=== PATIENT | female | born 1980 | race Caucasian/White ===

== ENCOUNTER → 2016-04-12 | Outpatient (CLI) | payer OTHER ==
--- NOTE | 2016-04-12 19:16 | US ---
EXAMINATION TYPE: US OB <= 14 wk fetus DATE OF EXAM: 04/12/2016 6:35 PM COMPARISON: NONE CLINICAL HISTORY: Z33.1. EXAM PERFORMED: EXAM MEASUREMENTS: GESTATIONAL AGE / DATING Physician Established: not yet established Dates by LMP: (9 weeks/4 days) EDC: 11/11/16 Dates by First Scan: 1st scan today Dates by Current Scan for: ( 8 weeks/3 days) EDC: 11/19/16 MATERNAL ANATOMY Uterus: 9.7 x 6.6 x 8.3cm retroverted Right Ovary: 3.7 x 2.5 x 2.5cm Left Ovary: 3.5 x 2.5 x 2.3cm Post CDS / Adnexa: wnl Presence of free fluid: no GESTATION / SURVEY CRL: 1.9cm (8 weeks/3 days) Yolk Sac (normal less than 6mm): 0.2 Heart Rate: 178 bpm Rhythm: Normal IUP: Viable IUP Date of LMP: 02/05/16 TECHNOLOGIST IMPRESSION: Viable IUP IMPRESSION: The ultrasound gestational age is 8 weeks 3 days. I see no complicating process.
== END | disposition home or self-care (01) ==
LOC: RADUSMAIN 17:49
PROVIDERS: ATTEND Family Medicine
DX: Z36 Encounter for antenatal screening of mother (principal); Z3A.08 8 weeks gestation of pregnancy
CPT/HCPCS: 76801

== ENCOUNTER → 2016-06-01 | Outpatient (CLI) | payer OTHER ==
[2016-06-01 13:04] LABS: CH 30.6; CHCM 34.6; Glucose 98 mg/dL (74-99); HCT 37.7 % (34.0-46.0); HDW 2.61; HGB 12.8 gm/dL (11.4-16.0); MCH 30.3 pg (25.0-35.0); Mean Platelet Volume 7.9; Non-African American GFR(MDRD) >60 (>60 ml/min/1.73 sqM); RBC 4.23 m/uL (3.80-5.40); RDW 13.4 % (11.5-15.5); WBC 9.2 k/uL (3.8-10.6)
[2016-06-01 13:36] LABS: Hepatitis B Surface Ag Index 0.07
[2016-06-02 05:31] LABS: Toxoplasma Antibody (IgG) <3.0 IU/mL (<7.2)
[2016-06-02 07:39] LABS: HIV-1/HIV-2 Ab Screen NONREAC (NON REAC)
[2016-06-02 12:17] LABS: Alpha Fetoprotein 28.3 ng/mL; Alpha Fetoprotein (M.O.M) 0.87; B-HCG (M.O.M.) 0.57; Gestational Age (days) 4; Human Chorionic Gonadotropin 25.1 IU/mL; Inhibin A (M.O.M.) 1.81; Interpretation SeeBelow; Maternal Age at EDD (Yrs) 38; Unconjugated Estriol (M.O.M.) 0.69
== END | disposition home or self-care (01) ==
LOC: LABWHC1 12:05
PROVIDERS: ATTEND Obstetrics & Gynecology
DX: Z34.82 Encounter for supervision of other normal pregnancy, second trimester (principal); Z3A.00 Weeks of gestation of pregnancy not specified
CPT/HCPCS: 36415; 81220; 82105; 82565; 82677; 82947; 84702; 85027; 86336; 86762; 86777; 86778; 86780; 86850; 86900; 86901; 87340; 87389

== ENCOUNTER → 2016-06-16 | Outpatient (CLI) | payer OTHER ==
--- NOTE | 2016-06-16 17:24 | US ---
EXAMINATION TYPE: US OB anatomy transabd DATE OF EXAM: 06/16/2016 5:04 PM COMPARISON: In pacs HISTORY: Large for Dates O36.62X0 LGA TECHNIQUE: Transabdominal (TA) EXAM MEASUREMENTS: GESTATIONAL AGE / DATING Physician Established: (18 weeks/6 days) EDC: 11/11/2016 Dates by LMP: (18 weeks/6 days) EDC: 11/11/2016 Dates by First Scan: (17 weeks/5 days) EDC: 11/19/2016 Dates by Current Scan for: (18 weeks/0 days) EDC: 11/17/2016 SURVEY IUP: Single PLACENTA: Anterior PREVIA: No previa JULITO: 12.5 cm Normal CERVICAL LENGTH (transabdominal: norm > 3.0cm): 3.4 cm BIOMETRY PRESENTATION: Vertex LIE: Longitudinal BPD: 4.0 cm 18 weeks / 0 days HC: 14.7 cm 17 weeks / 6 days AC: 12.6 cm 18 weeks / 1 days FL: 2.7 cm 18 weeks / 1 days ESTIMATED WEIGHT IN GRAMS: 225.0 grams ESTIMATED WEIGHT IN LBS/OZS: 0 lbs. 8 oz. WEIGHT PERCENTAGE BASED ON ESTABLISHED DATE: 11.7 % HC/AC: 1.17 Normal FL/AC: 21.31 HEART RATE: 149 bpm RHYTHM: Normal ANATOMY SEEN (within normal limits): * Lateral Vent (< 1 cm) 0.7 cm * Cisterna Magna (< 1.1 cm) 0.4 cm * Nuchal Fold (< 0.6 cm) 0.2 cm * Cerebellum (varies with age) 1.6 cm Choroid Plexus (bilateral) Midline Falx Cavus Septi Pellucidi Four Chamber Heart Outflow tracts: LVOT/RVOT Stomach Situs Nose / Lips Diaphragm Kidneys (bilateral) Bladder Cord Insert Three Vessel Cord Arms (bilateral) Legs (bilateral) ANATOMY NOT SEEN: Due to position, spine down Longitudinal Spine Transverse Spine Viable single IUP measuring 18 weeks 0 days with a heart rate of 149bpm and an estimated delivery anna e of 11/17/2016. Patient is scheduled for an OB callback on 07/02/16 at 4:20pm for anatomy not seen on today's exam. IMPRESSION: Viable single IUP measuring 18 weeks 0 days with a heart rate of 149bpm and an estimated delivery anna e of 11/17/2016. Patient callback recommended.
--- NOTE | 2016-07-03 20:17 | US ---
EXAMINATION TYPE: US OB Call Back DATE OF EXAM: 07/02/2016 4:42 PM COMPARISON: survey 06/16/2016 CLINICAL HISTORY: 35-year-old female OB Call BACK. TECHNIQUE: Transabdominal scanning. FINDINGS: GESTATIONAL AGE / DATING Dates by Initial Survey Scan: (21 weeks/1 days) EDC: 11/11/2016 HEART RATE: 152 bpm RHYTHM: Normal ANATOMY SEEN (second anatomic survey look): Longitudinal Spine: Thoracic, lumbar, sacral Transverse Spine: Thoracic, lumbar, sacral ANATOMY SUBOPTIMALLY VISUALIZED: Longitudinal and transverse spine: Cervical spine. Unable to exclude abnormality especially on the lo ng axis views of the cervical spine on the first couple images. IMPRESSION: Suboptimal visualization of the cervical spine. Rescan of this area is recommended. The remainder of the spine appears normal.
== END | disposition home or self-care (01) ==
LOC: RADUSWWP 16:29
PROVIDERS: ATTEND Obstetrics & Gynecology
DX: O36.62X0 Maternal care for excessive fetal growth, second trimester, not applicable or unspecified (principal); Z3A.18 18 weeks gestation of pregnancy
CPT/HCPCS: 76811

== ENCOUNTER 2016-07-24 08:46 | Emergency (ER) | payer OTHER ==
[2016-07-24 08:52] VITALS: BP 118/63; PULSE 88; RESP 18; TEMP 98.5
--- NOTE | 2016-07-24 09:04 | ED ---
Lower Extremity Injury HPI - General Chief Complaint: Extremity Injury, Lower Stated Complaint: Fall Time Seen by Provider: 07/24/16 08:55 Source: patient, RN notes reviewed Mode of arrival: wheelchair Limitations: no limitations - History of Present Illness Initial Comments: 35-year-old female presents emergency room chief complaint of right ankle injury. Patient states she was walking on the stairs and she missed a step and twisted her right ankle. Patient states now has pain along the lateral aspect. Patient states that she was able to walk on this. Patient states she is currently 22 weeks . Patient states she was concerned when she noticed swelling so she thought that she should be evaluated. Patient denies any other incident from the event. Patient states that she did not fall to the ground she just rolled her ankle.Patient denies any recent fever, chills, shortness of breath, chest pain, back pain, abdominal pain, nausea vomiting, numbness or tingling, dysuria or hematuria, constipation or diarrhea, headaches or visual changes, or any other current symptoms. - Related Data Allergies Allergy/AdvReac Type Severity Reaction Status Date / Time No Known Allergies Allergy Verified 07/24/16 08:52 Review of Systems ROS Statement: Those systems with pertinent positive or pertinent negative responses have been documented in the HPI. ROS Other: All systems not noted in ROS Statement are negative. Past Medical History Additional Past Medical History / Comment(s): IBS History of Any Multi-Drug Resistant Organisms: None Reported Past Surgical History: Section Past Psychological History: Anxiety Smoking Status: Current every day smoker Past Alcohol Use History: None Reported Past Drug Use History: None Reported General Exam - General Exam Comments Initial Comments: General: The patient is awake and alert, in no distress, and does not appear acutely ill. Neck: The neck is supple, there is no tenderness. Cardiovascular: There is a regular rate and rhythm. No murmur, rub or gallop is appreciated. Respiratory: Lungs are clear to auscultation, respirations are non-labored, breath sounds are equal. No wheezes, stridor, rales, or rhonchi. Musculoskeletal: Sensation intact with 2+ pulses. She'll return for range of motion of right knee right ankle. Patient does have some tenderness along the lateral aspect of the right ankle with some swelling over the lateral malleolus. No medial tenderness. There is full range of motion. 5/5 muscle strength testing. Neurological: CN II-XII intact, There are no obvious motor or sensory deficits. Coordination appears grossly intact. Speech is normal. Skin: Skin is warm and dry and no rashes or lesions are noted. Psychiatric: Normal mood and affect. Limitations: no limitations Course Vital Signs 07/24/16 08:46 Temperature 98.5 F Pulse Rate 88 Respiratory 18 Rate Blood Pressure 118/63 O2 Sat by Pulse 99 Oximetry Procedures - Orthopedic Splinting/Casting Injury #1 Side: right Lower Extremity Injury Location: ankle Lower Extremity Immobilizer: Gabriel wrap Medical Decision Making - Medical Decision Making 35-year-old female presents with what appears to be a right ankle sprain. This time we discussed ice and Tylenol to the area. We did discuss doing an x-ray. Patient was able pain and she is currently . With the rest the patient states that she would not like to undergo an x-ray at this time. We did discuss that she can return in a few days if her symptoms continue and at that point we can rediscuss the x-ray. The patient is in agreement with the plan and all her questions have been answered. She will be discharged home. Disposition Clinical Impression: Right ankle sprain Disposition: HOME SELF-CARE Condition: Stable Instructions: Ankle Sprain (ED) Additional Instructions: Please use medication as discussed. Please follow up with family doctor if symptoms have not improved over the next two days. Please return to the emergency room if your symptoms increase or worsen or for any other concerns. Referrals: Tanesha Agarwal MD [STAFF PHYSICIAN] - 1-2 days Time of Disposition: 09:03
== END 2016-07-24 09:29 | disposition home or self-care (01) ==
LOC: EC 08:46
DX: O9A.212 Injury, poisoning and certain other consequences of external causes complicating pregnancy, second trimester (principal); S93.401A Sprain of unspecified ligament of right ankle, initial encounter; O99.332 Smoking (tobacco) complicating pregnancy, second trimester; F17.200 Nicotine dependence, unspecified, uncomplicated; Z3A.22 22 weeks gestation of pregnancy; W10.9XXA Fall (on) (from) unspecified stairs and steps, initial encounter; Y93.01 Activity, walking, marching and hiking
CPT/HCPCS: 99283

== ENCOUNTER → 2016-09-04 | Outpatient (CLI) | payer OTHER ==
[2016-09-04 11:02] LABS: CH 29.4; CHCM 33.7; HDW 2.77; HGB 12.1 gm/dL (11.4-16.0); MCHC 36.5 g/dL (31.0-37.0); MCV 87.8 fL (80.0-100.0); Mean Platelet Volume 7.9; RBC 3.76 m/uL (3.80-5.40); RDW 13.3 % (11.5-15.5); WBC 9.4 k/uL (3.8-10.6)
== END | disposition home or self-care (01) ==
LOC: LABWHC1 09:13
PROVIDERS: ATTEND Obstetrics & Gynecology
DX: Z34.82 Encounter for supervision of other normal pregnancy, second trimester (principal)
CPT/HCPCS: 36415; 82950; 85027; 86850

== ENCOUNTER → 2016-09-13 | Outpatient (CLI) | payer OTHER ==
[2016-09-13 12:53] LABS: Glucose 3 Hour, Gest 141 mg/dL
== END | disposition home or self-care (01) ==
LOC: LABWHC1 08:03
PROVIDERS: ATTEND Obstetrics & Gynecology
DX: O24.419 Gestational diabetes mellitus in pregnancy, unspecified control (principal); Z3A.00 Weeks of gestation of pregnancy not specified
CPT/HCPCS: 36415; 82951; 82952

== ENCOUNTER → 2016-09-29 | Outpatient (CLI) | payer OTHER ==
[2016-09-29 10:54] VITALS: BMI 27.4
== END | disposition home or self-care (01) ==
LOC: DBWHC3 08:00
PROVIDERS: ATTEND Obstetrics & Gynecology
DX: O99.810 Abnormal glucose complicating pregnancy (principal); Z3A.00 Weeks of gestation of pregnancy not specified

== ENCOUNTER 2016-11-04 06:14 | Inpatient (IN) | payer OTHER ==
[2016-11-04] MEDS ORDERED: LACTATED RINGERS 1,000 ML IV ONE (06:18)
[2016-11-04] MEDS ORDERED: CITRIC ACID-SODIUM CITRATE 15 ML CUP PO ONE (06:18)
[2016-11-04] MEDS ORDERED: ceFAZolin 2 GM in SODIUM CHLORIDE 0.9% 100 ML IVPB ONE (06:18)
[2016-11-04 06:29] VITALS: BMI 27.6
[2016-11-04 06:40] LABS: Basophils # (A) 0.1 k/uL (0-0.2); Basophils % (A) 0 %; CHCM 35.4; Eosinophils # (A) 0.3 k/uL (0-0.7); Eosinophils % (A) 2 %; HCT 35.8 % (34.0-46.0); HDW 2.82; HGB 12.4 gm/dL (11.4-16.0); Luc # (Auto) 0.16; Luc % (Auto) 1; Lymphocytes # (A) 1.8 k/uL (1.0-4.8); Lymphocytes % (A) 15 %; MCH 30.5 pg (25.0-35.0); MCHC 34.5 g/dL (31.0-37.0); MCV 88.3 fL (80.0-100.0); Mean Platelet Volume 8.9; Monocytes # (A) 0.6 k/uL (0-1.0); Monocytes % (A) 5 %; Neutrophils # (A) 9.3 k/uL (1.3-7.7); Neutrophils % (A) 77 %; RBC 4.06 m/uL (3.80-5.40); RDW 14.4 % (11.5-15.5); WBC 12.1 k/uL (3.8-10.6); WBC (Perox) 12.39
[2016-11-04] MEDS ORDERED: OXYTOCIN 10 UNIT/ML 1 ML VIAL ONE (07:55)
[2016-11-04] MEDS ORDERED: MORPHINE SULFATE (PF) 0.3 MG/0.3 ML SYR ONE (07:55)
[2016-11-04] MEDS ORDERED: ePHEDrine SULFATE/0.9% NACL/PF 50 MG/5 ML SYRINGE IV ONE (07:55)
[2016-11-04] MEDS ORDERED: ONDANSETRON 4 MG/2 ML VIAL ONE (07:55)
[2016-11-04] MEDS ORDERED: DEXAMETHASONE SOD PHOS (MDV) 100 MG/10 ML VIAL ONE (07:55)
[2016-11-04] MEDS ORDERED: KETOROLAC 30 MG/ML 1 ML VIAL ONE (07:55)
[2016-11-04] MEDS ORDERED: NALBUPHINE 10 MG/ML AMPUL ONE (07:55)
[2016-11-04] MEDS ORDERED: NALOXONE 0.4 MG/ML 1 ML VIAL IV PRN (08:38)
[2016-11-04] MEDS ORDERED: ACETAMINOPHEN TAB 325 MG TAB PO PRN (08:38)
[2016-11-04] MEDS ORDERED: Acetaminophen-Codeine 300-30mg TAB PO PRN (08:38)
[2016-11-04] MEDS ORDERED: METOCLOPRAMIDE 5 MG/ML 2 ML VIAL IVP PRN (08:38)
[2016-11-04] MEDS ORDERED: diphenhydrAMINE 50 MG CAP PO PRN (08:38)
[2016-11-04] MEDS ORDERED: ZOLPIDEM 5 MG TAB PO PRN (08:38)
[2016-11-04] MEDS ORDERED: SIMETHICONE 80 MG CHEWABLE PO PRN (08:38)
[2016-11-04] MEDS ORDERED: diphenhydrAMINE 25 MG CAP PO PRN (08:38)
[2016-11-04] MEDS ORDERED: diphenhydrAMINE 50 MG/ML 1 ML VIAL IVP PRN (08:38)
[2016-11-04] MEDS ORDERED: ONDANSETRON 4 MG/2 ML VIAL IVP PRN (08:38)
--- NOTE | 2016-11-04 08:42 | P.HPOB ---
History of Present Illness H&P Date: 11/04/16 Chief Complaint: Uterine at term: Previous section: Breech of last ultras Sana is a 36-year-old at 39 weeks gestation with history of previous section and last ultrasound showed a breech presentation. Her course has been complicated has maternal age and previous breech she is had nonstress tests throughout the due to advanced maternal age and it is noted that she failed her 1 hour but passed a 3 hour with only one abnormal and she did see diabetic education for this. Otherwise Precis course has generally been unremarkable. On physical exam vital signs are stable and she is afebrile. Heart regular, lungs clear, extremities without pain. Osteopathic exam is unremarkable. heart tones in 130s and reactive prior to the section. Assessment intrauterine at term. Land repeat low transverse section with partial bilateral salpingectomy for family planning. Past Medical History Past Medical History: No Reported History Additional Past Medical History / Comment(s): IBS History of Any Multi-Drug Resistant Organisms: None Reported Past Surgical History: Section Past Anesthesia/Blood Transfusion Reactions: No Reported Reaction Past Psychological History: Anxiety Smoking Status: Current every day smoker Past Alcohol Use History: None Reported Additional Past Alcohol Use History / Comment(s): SMOKES 1/2 PPD SINCE AGE 13 Past Drug Use History: None Reported - Past Family History Mother Family Medical History: Hypertension Medications and Allergies Home Medications Medication Instructions Recorded Confirmed Type Doxylamine Succinate [Unisom] 25 mg PO HS 11/01/16 11/04/16 History Pnv,Calcium 72/Iron/Folic Acid 1 tab PO DAILY 11/01/16 11/04/16 History [ Plus Tablet] Allergies Allergy/AdvReac Type Severity Reaction Status Date / Time hydrocodone [From Vicodin] AdvReac Nausea Verified 11/04/16 06:18 Exam Osteopathic Statement: *. No significant issues noted on an osteopathic structural exam other than those noted in the History and Physical/Consult. - Vital Signs Vital signs: Vital Signs Temp Pulse Resp BP Pulse Ox 11/04/16 06:17 97.1 F L 78 19 117/64 97 Intake and Output 11/03/16 11/04/16 11/04/16 22:59 06:59 14:59 Other: Weight 73.028 kg Results Result Diagrams: 11/04/16 06:25 Abnormal Lab Results - Last 24 Hours (Table) 11/04/16 Range/Units 06:25 WBC 12.1 H (3.8-10.6) k/uL Neutrophils # 9.3 H (1.3-7.7) k/uL
--- NOTE | 2016-11-04 08:46 | P.OP ---
Date of Procedure: 11/04/16 Preoperative Diagnosis: Intrauterine at term: Previous section: Breech: Family planning Postoperative Diagnosis: Same Procedure(s) Performed: Repeat low transverse section with bilateral partial salpingectomy Implants: Anesthesia: spinal Surgeon: Cristóbal Angel Locomotive Observer #1: Quynh Uriostegui Estimated Blood Loss (ml): 500 IV fluids (ml): 1,000 Urine output (ml): 200 Pathology: other (Placenta) Condition: stable Disposition: floor Indications for Procedure: Operative Findings: Breech delivery via of a viable female scores of 9 and 10 at one and 5 minutes respectively weight was 5 lbs. 13 oz. Description of Procedure: Patient was taken to the operating suite where a spinal anesthetic was found be adequate. She was prepped and draped in the normal sterile fashion and placed in dorsal supine position with leftward tilt. Initially a Pfannenstiel skin incision was made this incision was then carried through to underlying layer of the fascia was second knife. Fascia was then nicked in the midline and this opening was extended laterally with Ramirez scissors. Superior and inferior aspect of this incision were then grasped tented up and bluntly and sharply dissected off the rectus muscles. Rectus muscles were then divided the midline and sharp dissection through the peritoneum was made. This opening was then extended superiorly and inferiorly with good visualization of both bowel bladder. Bladder blade was then placed and the bladder flap was identified. It was entered with Metzenbaum scissors this opening was extended across face the uterus and then bluntly dissected out of the operative field. Knife was then used to incise uterus: Incision was created with hemostat and then the incision was bluntly extended. But it was noted and it was elevated into the incision and without difficulty entire baby delivered. Mouth nares were then bulb suctioned and the umbilical cord was clamped and cut in usual fashion. Placenta was then delivered intact and Pitocin was added to the IV. Uterus was then exteriorized cleared of clots and debris and closed in 1 layer with 0 Vicryl suture. Once excellent hemostasis was obtained the fallopian tubes were identified grasped with hemostat 3 cm from uterine cornu and a window was created in the mesosalpinx bilaterally. 2 proximal and 2 distal 2-0 silk sutures were then placed with the intervening segments excised and tips were cauterized. Blood and debris was then suctioned from the posterior cul-de-sac and the uterus was reinserted into the abdomen. Peritoneal layer was then identified and closed with 3-0 Vicryl. Fascially was closed Lobac suture. One layer of 3-0 Vicryl was placed in deep subcuticular tissues and skin was then closed with 3-0 Vicryl on a Teodoro needle. Sponge, lap, needle counts were all correct 2. Patient was then taken to the recovery room in stable and satisfactory condition.
[2016-11-04] MEDS: LACTATED RINGERS 1,000 ML IV SCH ×3 (12:01→20:36)
[2016-11-04] MEDS: KETOROLAC 30 MG/ML 1 ML VIAL IVP PRN ×2 (14:51→21:29)
[2016-11-04] MEDS: diphenhydrAMINE 50 MG/ML 1 ML VIAL IVP PRN (17:41)
[2016-11-04] MEDS: SENNOSIDES-DOCUSATE SODIUM 1 EACH TAB PO SCH (20:36)
[2016-11-05] MEDS: diphenhydrAMINE 50 MG/ML 1 ML VIAL IVP PRN (00:02)
[2016-11-05] MEDS: LACTATED RINGERS 1,000 ML IV SCH ×2 (01:16→03:07)
[2016-11-05 01:18] VITALS: RESP 16
[2016-11-05] MEDS: KETOROLAC 30 MG/ML 1 ML VIAL IVP SCH ×2 (04:38→11:15)
[2016-11-05 07:21] LABS: Basophils % (A) 0 %; CH 31.1; CHCM 34.8; Eosinophils # (A) 0.1 k/uL (0-0.7); Eosinophils % (A) 1 %; HDW 2.75; HGB 10.8 gm/dL (11.4-16.0); Luc # (Auto) 0.15; Luc % (Auto) 1; Lymphocytes # (A) 2.2 k/uL (1.0-4.8); Lymphocytes % (A) 18 %; MCH 30.4 pg (25.0-35.0); MCHC 33.7 g/dL (31.0-37.0); MCV 90.1 fL (80.0-100.0); Mean Platelet Volume 9.4; Monocytes # (A) 0.5 k/uL (0-1.0); Monocytes % (A) 4 %; Neutrophils # (A) 9.8 k/uL (1.3-7.7); Neutrophils % (A) 76 %; RBC 3.55 m/uL (3.80-5.40); RDW 14.4 % (11.5-15.5); WBC 12.8 k/uL (3.8-10.6); WBC (Perox) 12.87
[2016-11-05] MEDS: SENNOSIDES-DOCUSATE SODIUM 1 EACH TAB PO SCH ×2 (07:37→19:53)
--- NOTE | 2016-11-05 09:03 | P.PN ---
Progress Note - Text Date:11/05 Time:736 Patient is status post . Patient seen this morning with VAS score of 0. c/o of pruritus, c/o nausea/vomiting, comfortable and doing well.
--- NOTE | 2016-11-05 09:09 | P.PNOBGPC ---
Subjective - Subjective Principal diagnosis: Postop day 1 Interval history: Sana is doing very well this morning. She is involuting, voiding and she is tolerating her diet. She voices no complaints. She did have some dizziness yesterday but it has resolved. Vital signs are stable and afebrile. Heart regular, lungs clear, extremities without pain. Abdomen is soft uterus is firm and her incision is intact. Assessment postop day 1. Plan continue current care with expectation for discharge tomorrow. Patient reports: Reports appetite normal, Reports voiding normally, Reports pain well controlled, Reports ambulating normally [place]: doing well Objective - Vital Signs Latest vital signs: Vital Signs Temp Pulse Resp BP Pulse Ox 11/05/16 07:56 98.0 F 72 16 103/61 11/05/16 04:00 98.4 F 70 16 97/50 97 11/05/16 00:00 98.2 F 71 16 95/58 96 11/04/16 20:00 98.2 F 68 17 105/64 97 11/04/16 15:56 97.2 F L 69 16 109/62 11/04/16 12:00 98.2 F 72 16 108/62 11/04/16 11:00 98.1 F 79 16 102/60 11/04/16 10:25 72 16 116/57 95 11/04/16 09:45 75 16 109/66 11/04/16 09:30 71 16 107/55 99 11/04/16 09:15 76 16 118/57 98 Intake and Output 11/04/16 11/05/16 11/05/16 22:59 06:59 14:59 Output Total 900 200 Balance -900 -200 Output: Urine 700 200 Uretheral (Shirley) 250 Emesis 200 Other: # Voids 0 1 1 - Labs Labs: Abnormal Lab Results - Last 24 Hours (Table) 11/05/16 Range/Units 07:06 WBC 12.8 H (3.8-10.6) k/uL RBC 3.55 L (3.80-5.40) m/uL Hgb 10.8 L (11.4-16.0) gm/dL Hct 32.0 L (34.0-46.0) % Neutrophils # 9.8 H (1.3-7.7) k/uL
[2016-11-05] MEDS: IBUPROFEN 600 MG TAB PO PRN ×2 (16:26→22:21)
[2016-11-05] MEDS: Acetaminophen-Codeine 300-30mg TAB PO PRN (18:20)
[2016-11-06] MEDS: Acetaminophen-Codeine 300-30mg TAB PO PRN (00:28)
[2016-11-06] MEDS: IBUPROFEN 600 MG TAB PO PRN ×2 (05:22→11:42)
[2016-11-06] MEDS: SENNOSIDES-DOCUSATE SODIUM 1 EACH TAB PO SCH (08:32)
--- NOTE | 2016-11-06 09:22 | P.DS ---
Providers Date of admission: 11/04/16 06:14 Expected date of discharge: 11/06/16 Attending physician: Cristóbal Angel Primary care physician: Stated None - Discharge Diagnosis(es) (1) Status post repeat low transverse section Current Visit: Yes Status: Acute Hospital Course: Patient presented for repeat low transverse . She underwent this procedure without complication. She denies nausea, vomiting, chest pain, shortness of breath or calf pain. She is ambulating voiding without difficulty. Tolerating regular diet and passing flatus. She'll be discharged home postoperative day #2 in stable condition to follow-up with me in one week. Plan - Discharge Summary New Discharge Prescriptions: New Ibuprofen [Motrin] 600 mg PO Q6HR PRN #30 tab PRN Reason: Pain Acetaminophen-Codeine 300-30mg [Tylenol #3] 2 tab PO Q6H PRN #30 tablet PRN Reason: Pain Ibuprofen [Motrin] 600 mg PO Q6HR PRN #30 tab PRN Reason: Mild Pain Or Fever >= 100.5 No Action Pnv,Calcium 72/Iron/Folic Acid [ Plus Tablet] 1 tab PO DAILY Doxylamine Succinate [Unisom] 25 mg PO HS Discharge Medication List Doxylamine Succinate [Unisom] 25 mg PO HS 11/01/16 [History] Pnv,Calcium 72/Iron/Folic Acid [ Plus Tablet] 1 tab PO DAILY 11/01/16 [ History] Ibuprofen [Motrin] 600 mg PO Q6HR PRN #30 tab 11/05/16 [Rx] Acetaminophen-Codeine 300-30mg [Tylenol #3] 2 tab PO Q6H PRN #30 tablet [Rx] Ibuprofen [Motrin] 600 mg PO Q6HR PRN #30 tab 11/06/16 [Rx] Follow up Appointment(s)/Referral(s): Cristóbal Angel DO [Doctor of Osteopathic Medicine] - 1 Week Activity/Diet/Wound Care/Special Instructions: No heavy lifting, limit stairs and driving, and pelvic rest. If any high temperatures, heavy bleeding, or severe pain call my office Discharge Disposition: HOME SELF-CARE
[2016-11-06 09:34] VITALS: BP 115/53; PULSE 75; TEMP 97.6
== END 2016-11-06 16:29 | disposition home or self-care (01) | DRG 766 ==
LOC: 4FBP 06:14
PROVIDERS: ADMIT Obstetrics & Gynecology; ATTEND Obstetrics & Gynecology
PROC: 0UB70ZZ Excision of Bilateral Fallopian Tubes, Open Approach (ICD-10-PCS; 2016-11-04)
PROC: 10D00Z1 Extraction of Products of Conception, Low, Open Approach (ICD-10-PCS; principal; 2016-11-04 08:00)
DX: O34.211 Maternal care for low transverse scar from previous cesarean delivery (principal); F41.9 Anxiety disorder, unspecified; Z37.0 Single live birth; O99.344 Other mental disorders complicating childbirth; O99.334 Smoking (tobacco) complicating childbirth; O99.62 Diseases of the digestive system complicating childbirth; K58.9 Irritable bowel syndrome, unspecified; O99.89 Other specified diseases and conditions complicating pregnancy, childbirth and the puerperium; R42 Dizziness and giddiness; L29.9 Pruritus, unspecified; O99.72 Diseases of the skin and subcutaneous tissue complicating childbirth; R11.2 Nausea with vomiting, unspecified; Z3A.39 39 weeks gestation of pregnancy; Z82.49 Family history of ischemic heart disease and other diseases of the circulatory system
CPT/HCPCS: 85025; 86850; 86900; 86901; 88302; 88307

== ENCOUNTER 2017-06-19 01:48 | Observation (INO) | payer OTHER ==
[2017-06-19 01:55] VITALS: RESP 18
[2017-06-19] MEDS ORDERED: DICYCLOMINE 10 MG/ML 2 ML AMP IM STA (02:17)
[2017-06-19] MEDS ORDERED: SODIUM CHLORIDE 0.9% 1,000 ML IV STA (02:17)
[2017-06-19] MEDS ORDERED: ONDANSETRON 4 MG/2 ML VIAL IVP STA (02:17)
[2017-06-19] MEDS ORDERED: RX INFO: IV CONTRAST WAS GIVEN 1 EACH MISC MISCELLANE PRN (02:18)
--- NOTE | 2017-06-19 02:21 | ED ---
Abdominal Pain HPI - General Chief Complaint: Abdominal Pain Stated Complaint: Abdominal Pain Time Seen by Provider: 06/19/17 01:49 Source: EMS Mode of arrival: EMS Limitations: no limitations - History of Present Illness Initial Comments: 36-year-old female patient presents to the emergency department states chief complaint of abdominal pain. Patient states that the pain encompasses her entire lower abdomen. Patient states it started approximately 20 minutes prior to arrival just after having sexual intercourse. Patient states that she has been nauseated and did vomit one time. Patient does have a history of irritable bowel syndrome and has been taking Bentyl this week due to an increase in her symptoms. Patient denies any fever or chills. Denies any hematuria, dysuria, urinary frequency, urinary urgency. She denies any vaginal discomfort, abnormal bleeding or discharge. She denies any radiation of the pain into her back. Patient denies any recent rash, shortness breath, chest pain, diarrhea, constipation, back pain, numbness, tingling, dizziness, weakness , headache, visual changes, or any other complaints. Patient does admit to drinking alcohol today, states that she drinks approximately 2 times per month. She states that she had 3 shots of liquor and 2 beers. - Related Data Home Medications Medication Instructions Recorded Confirmed Doxylamine Succinate [Unisom] 25 mg PO HS 11/01/16 11/04/16 Pnv,Calcium 72/Iron/Folic Acid 1 tab PO DAILY 11/01/16 11/04/16 [ Plus Tablet] Previous Rx's Medication Instructions Recorded Ibuprofen [Motrin] 600 mg PO Q6HR PRN #30 tab 11/05/16 Acetaminophen-Codeine 300-30mg 2 tab PO Q6H PRN #30 tablet 11/06/16 [Tylenol #3] Ibuprofen [Motrin] 600 mg PO Q6HR PRN #30 tab 11/06/16 Allergies Allergy/AdvReac Type Severity Reaction Status Date / Time hydrocodone [From Vicodin] AdvReac Nausea Verified 06/19/17 01:55 Review of Systems ROS Statement: Those systems with pertinent positive or pertinent negative responses have been documented in the HPI. ROS Other: All systems not noted in ROS Statement are negative. Past Medical History Past Medical History: No Reported History Additional Past Medical History / Comment(s): IBS History of Any Multi-Drug Resistant Organisms: None Reported Past Surgical History: Section Past Anesthesia/Blood Transfusion Reactions: No Reported Reaction Past Psychological History: Anxiety Smoking Status: Current every day smoker Past Alcohol Use History: Occasional Past Drug Use History: None Reported - Past Family History Mother Family Medical History: Hypertension General Exam Limitations: no limitations General appearance: alert, in no apparent distress, other (This is a well- developed, well-nourished adult female patient in no acute distress. Vital signs upon presentation are temperature 97.5F, pulse 63, respirations 18, blood pressure 111/58, pulse ox 95% on room air.) Eye exam: Present: normal appearance, PERRL, EOMI. Absent: scleral icterus, conjunctival injection, periorbital swelling ENT exam: Present: normal exam, normal oropharynx, mucous membranes moist Respiratory exam: Present: normal lung sounds bilaterally. Absent: respiratory distress, wheezes, rales, rhonchi, stridor Cardiovascular Exam: Present: regular rate, normal rhythm, normal heart sounds. Absent: systolic murmur, diastolic murmur, rubs, gallop, clicks GI/Abdominal exam: Present: soft, tenderness (Lower abdominal tenderness, worse over the right lower quadrant.), normal bowel sounds. Absent: distended, guarding, rebound, rigid External exam: Present: normal external exam Speculum exam: Present: vaginal discharge (Thin, white), other (painful examination). Absent: normal speculum exam, vaginal bleeding By manual exam: Present: cervical motion tenderness, adnexal tenderness, uterine tenderness Back exam: Present: normal inspection. Absent: CVA tenderness (R), CVA tenderness (L) Neurological exam: Present: alert, oriented X3, CN II-XII intact Psychiatric exam: Present: normal affect, normal mood Skin exam: Present: warm, dry, intact, normal color. Absent: rash Course Vital Signs 06/19/17 06/19/17 01:51 03:29 Temperature 97.5 F L 99.3 F Pulse Rate 63 78 Respiratory 18 18 Rate Blood Pressure 111/58 112/66 O2 Sat by Pulse 95 98 Oximetry Medical Decision Making - Medical Decision Making 36-year-old female patient presented to the emergency department today for evaluation of pelvic pain after sexual intercourse. Physical examination did reveal significant lower abdominal tenderness. We did perform labs which showed an elevated white blood cell count 10.6. Perform CT the abdomen and pelvis with contrast which did show a density posterior to the uterus with evidence of bleeding. This mass is of uncertain significance. Did discuss the case with Dr. Saavedra who agrees to admit patient for observation perform ultrasound and repeat CBC in the morning. I did discuss results and plan with the patient she is in agreement. - Lab Data Result diagrams: 06/19/17 02:30 06/19/17 02:30 Lab Results 06/19/17 06/19/17 06/19/17 Range/Units 02:30 02:30 02:46 WBC 10.8 H (3.8-10.6) k/uL RBC 4.97 (3.80-5.40) m/uL Hgb 14.4 (11.4-16.0) gm/dL Hct 42.2 (34.0-46.0) % MCV 85.0 (80.0-100.0) fL MCH 29.1 (25.0-35.0) pg MCHC 34.2 (31.0-37.0) g/dL RDW 13.6 (11.5-15.5) % Plt Count 238 (150-450) k/uL Neutrophils % 73 % Lymphocytes % 20 % Monocytes % 3 % Eosinophils % 2 % Basophils % 0 % Neutrophils # 7.9 H (1.3-7.7) k/uL Lymphocytes # 2.1 (1.0-4.8) k/uL Monocytes # 0.4 (0-1.0) k/uL Eosinophils # 0.2 (0-0.7) k/uL Basophils # 0.0 (0-0.2) k/uL Sodium 143 (137-145) mmol/L Potassium 3.8 (3.5-5.1) mmol/L Chloride 107 (98-107) mmol/L Carbon Dioxide 23 (22-30) mmol/L Anion Gap 13 mmol/L BUN 8 (7-17) mg/dL Creatinine 0.60 (0.52-1.04) mg/dL Est GFR (CKD-EPI)AfAm >90 (>60 ml/min/1.73 sqM) Est GFR (CKD-EPI)NonAf >90 (>60 ml/min/1.73 sqM) Glucose 120 H (74-99) mg/dL Calcium 9.1 (8.4-10.2) mg/dL Total Bilirubin 0.2 (0.2-1.3) mg/dL AST 15 (14-36) U/L ALT 24 (9-52) U/L Alkaline Phosphatase 46 (38-126) U/L Total Protein 7.5 (6.3-8.2) g/dL Albumin 4.4 (3.5-5.0) g/dL Amylase 38 (30-110) U/L Lipase 81 (23-300) U/L Urine Color Urine Appearance (Clear) Urine pH (5.0-8.0) Ur Specific [place] (1.001-1.035) Urine Protein (Negative) Urine Glucose (UA) (Negative) Urine Ketones (Negative) Urine Blood (Negative) Urine Nitrite (Negative) Urine Bilirubin (Negative) Urine Urobilinogen (<2.0) mg/dL Ur Leukocyte Esterase (Negative) Urine HCG, Qual Not Detected (Not Detectd) 06/19/17 Range/Units 02:46 WBC (3.8-10.6) k/uL RBC (3.80-5.40) m/uL Hgb (11.4-16.0) gm/dL Hct (34.0-46.0) % MCV (80.0-100.0) fL MCH (25.0-35.0) pg MCHC (31.0-37.0) g/dL RDW (11.5-15.5) % Plt Count (150-450) k/uL Neutrophils % % Lymphocytes % % Monocytes % % Eosinophils % % Basophils % % Neutrophils # (1.3-7.7) k/uL Lymphocytes # (1.0-4.8) k/uL Monocytes # (0-1.0) k/uL Eosinophils # (0-0.7) k/uL Basophils # (0-0.2) k/uL Sodium (137-145) mmol/L Potassium (3.5-5.1) mmol/L Chloride (98-107) mmol/L Carbon Dioxide (22-30) mmol/L Anion Gap mmol/L BUN (7-17) mg/dL Creatinine (0.52-1.04) mg/dL Est GFR (CKD-EPI)AfAm (>60 ml/min/1.73 sqM) Est GFR (CKD-EPI)NonAf (>60 ml/min/1.73 sqM) Glucose (74-99) mg/dL Calcium (8.4-10.2) mg/dL Total Bilirubin (0.2-1.3) mg/dL AST (14-36) U/L ALT (9-52) U/L Alkaline Phosphatase (38-126) U/L Total Protein (6.3-8.2) g/dL Albumin (3.5-5.0) g/dL Amylase (30-110) U/L Lipase (23-300) U/L Urine Color Light Yellow Urine Appearance Clear (Clear) Urine pH 5.5 (5.0-8.0) Ur Specific [place] 1.007 (1.001-1.035) Urine Protein Negative (Negative) Urine Glucose (UA) Negative (Negative) Urine Ketones Negative (Negative) Urine Blood Negative (Negative) Urine Nitrite Negative (Negative) Urine Bilirubin Negative (Negative) Urine Urobilinogen <2.0 (<2.0) mg/dL Ur Leukocyte Esterase Negative (Negative) Urine HCG, Qual (Not Detectd) - Radiology Data Radiology results: report reviewed, image reviewed CT the abdomen and pelvis with contrast was obtained, report was reviewed in its entirety. Impression by Dr. Quintero shows density posterior to the uterus in the cul-de-sac of uncertain origin and significance. Transvaginal pelvic ultrasound would be helpful for further evaluation if clinically indicated. I would consider possibilities of hemorrhage in the pelvis, unusual located ovarian mass. The density is 70 which is higher than abscess or ascites. There is trace fluid around the left paracolic gutter and around the right lobe of the liver. There are small bowel fluid-filled loops in the lower abdomen consistent with mild ileus. Disposition Clinical Impression: Pelvic mass, Pelvic pain Disposition: ADMITTED IP TO THIS [facility] Condition: Serious Referrals: Leona Zarco DO [Primary Care Provider] - 1-2 days Decision to Admit Reason: Admit from EC Decision Date: 06/19/17 Decision Time: 04:21
[2017-06-19 02:39] LABS: Basophils % (A) 0 %; Eosinophils # (A) 0.2 k/uL (0-0.7); Eosinophils % (A) 2 %; HCT 42.2 % (34.0-46.0); HGB 14.4 gm/dL (11.4-16.0); Lymphocytes # (A) 2.1 k/uL (1.0-4.8); Lymphocytes % (A) 20 %; MCH 29.1 pg (25.0-35.0); MCHC 34.2 g/dL (31.0-37.0); Mean Platelet Volume 7.4; Monocytes # (A) 0.4 k/uL (0-1.0); Monocytes % (A) 3 %; Neutrophils # (A) 7.9 k/uL (1.3-7.7); Neutrophils % (A) 73 %; Platelet Count 238 k/uL (150-450); RBC 4.97 m/uL (3.80-5.40); RDW 13.6 % (11.5-15.5); WBC 10.8 k/uL (3.8-10.6)
[2017-06-19 02:51] LABS: ALT 24 U/L (9-52); AST 15 U/L (14-36); Albumin 4.4 g/dL (3.5-5.0); Alkaline Phosphatase 46 U/L (38-126); Amylase 38 U/L (30-110); Anion Gap 13 mmol/L; Blood Urea Nitrogen 8 mg/dL (7-17); Calcium 9.1 mg/dL (8.4-10.2); Carbon Dioxide 23 mmol/L (22-30); Chloride 107 mmol/L (98-107); Glucose 120 mg/dL (74-99); Lipase 81 U/L (23-300); Potassium 3.8 mmol/L (3.5-5.1); Sodium 143 mmol/L (137-145); Total Bilirubin 0.2 mg/dL (0.2-1.3); Total Protein 7.5 g/dL (6.3-8.2)
[2017-06-19 02:57] LABS: Appearance,Urine Clear (Clear); Bilirubin,Urine Negative (Negative); Blood,Urine Negative (Negative); Color,Urine Light Yellow; Glucose,Urine (UA) Negative (Negative); Ketones,Urine Negative (Negative); Leukocyte Esterase,Urine Negative (Negative); Nitrite,Urine Negative (Negative); PH, Urine 5.5 (5.0-8.0); Protein,Urine Negative (Negative); Specific Gravity,Urine 1.007 (1.001-1.035); Urobilinogen,Urine <2.0 mg/dL (<2.0)
--- NOTE | 2017-06-19 03:37 | CT ---
EXAMINATION TYPE: CT abdomen pelvis w con DATE OF EXAM: 06/19/2017 COMPARISON: NONE HISTORY: Abdominal Pain CT DLP: 461.10 mGycm Automated exposure control for dose reduction was used. TECHNIQUE: Helical acquisition of images was performed from the lung bases through the pelvis. CONTRAST: Performed without Oral Contrast and with IV Contrast, patient injected with 100 mL of Isovue 300. FINDINGS: Lung bases are clear. There is no pleural effusion. Heart size is normal. Liver spleen pancreas gallbladder appear normal. Bile ducts are not dilated. There is no adrenal mass. Kidneys show satisfactory contrast opacification. There is no hydronephrosi s. Ureters are not dilated. There is no retroperitoneal adenopathy. There are a few of fluid filled loops of small bowel in the lower abdomen. These measure up to 2.5 cm . Uterus is somewhat retroverted. There is an intermediate density area posterior to the uterus in th e pelvis in the cul-de-sac. This measures 7 x 3.5 cm. This has density too high for water density flu id in the cul-de-sac. Appendix is not seen. There is no sign of appendicitis. The bony structures are intact. There is a small amount of free fluid around the liver. IMPRESSION: THERE IS DENSITY POSTERIOR TO THE UTERUS IN THE CUL-DE-SAC OF UNCERTAIN ORIGIN AND SIGNIFICANCE. RODRIGUEZ SVAGINAL PELVIC ULTRASOUND WOULD BE HELPFUL FOR FURTHER EVALUATION IF CLINICALLY INDICATED. I WOULD C ONSIDER POSSIBILITIES OF HEMORRHAGE IN THE PELVIS, unUSUALLY LOCATED OVARIAN MASS. THE DENSITY IS 70 WHICH IS HIGHER THAN ABSCESS OR ASCITES. THERE IS TRACE FLUID AROUND THE LEFT PARACOLIC GUTTER AND AROUND THE RIGHT LOBE OF THE LIVER.. THERE ARE SMALL BOWEL FLUID-FILLED LOOPS IN THE LOWER ABDOMEN CONSISTENT WITH MILD ILEUS.
[2017-06-19] MEDS ORDERED: MORPHINE SULFATE 4MG/4ML SYRG IVP STA (04:05)
[2017-06-19] MEDS ORDERED: MORPHINE SULFATE 4MG/4ML SYRG IV PRN (04:11)
[2017-06-19] MEDS ORDERED: NALOXONE 0.4 MG/ML 1 ML VIAL IV PRN (04:11)
[2017-06-19] MEDS ORDERED: SODIUM CHLORIDE 0.9% 1,000 ML IV SCH (04:15)
[2017-06-19 05:06] VITALS: BP 118/71; PULSE 72; TEMP 98.1; BMI 24.1
--- NOTE | 2017-06-19 09:25 | US ---
EXAMINATION TYPE: US transvaginal DATE OF EXAM: 06/19/2017 COMPARISON: CT 2018 CLINICAL HISTORY: Pain. Pelvic pain x 1 day, pelvic mass seen on CT, 2, para 2, history of 2 c-sections and tubal ligation TECHNIQUE: Transvaginal sonographic images only per ordering physician Date of LMP: 2 weeks ago EXAM MEASUREMENTS: Uterus: 7.4 x 4.7 x 5.3 cm Endometrial Stripe: 0.6 cm Right Ovary: 4.5 x 2.7 x 4.0 cm Left Ovary: not seen 1. Uterus: retroflex, heterogeneous, nabothian cyst 2. Endometrium: wnl 3. Right Ovary: multiple follicles, 2.2 x 1.7 x 2.2cm irregular complex lesion, possible hemorrhagic cyst 4. Left Ovary: not seen 5. Bilateral Adnexa: wnl 6. Posterior cul-de-sac: small amount of free fluid, 3.9 x 1.6 x 5.6cm complex non vascular mass wit hin cul-de-sac that appears to be possibly connected to right ovary vs. Adjacent to right ovary. IMPRESSION: NONVASCULAR SOLID MASS WITHIN THE CUL-DE-SAC OF UNCERTAIN ETIOLOGY. PLEASE CORRELATE WITH BETA-HCG. C ONSIDER SHORT-TERM FOLLOW-UP.
--- NOTE | 2017-06-19 10:40 | P.HPOB ---
History of Present Illness H&P Date: 06/19/17 Chief Complaint: Pelvic pain Patient is seen and evaluated. She is a 36-year-old female who last night approximate 1 AM was having intercourse and had a sharp severe 10 out of 10 pain that caused her to become nauseous and throwing up. Patient reports that the pain started all of a sudden at the very end of them having intercourse and that today the pain is about a 2-3 to at most 4 out of 10 pain versus 10 out of 10 last night. She relates pain with all across her lower abdomen CT and ultrasound were done showing question wall mass versus hemorrhage in the posterior cul-de-sac approximately 6 cm. The most likely scenario is that she had a hemorrhagic cyst on one of her ovaries that popped and spilled blood into her belly as she is feeling improved. We'll try Toradol today along with her other pain medications and see if the anti-inflammatory effect does decrease her pain. We'll also advance her diet to clear liquids and see how she tolerates that she would like to go home today if at all possible. Her vital signs are otherwise stable and she is afebrile. Heart regular, lungs clear, extremities without pain. Abdomen is soft positive bowel sounds are noted. A bimanual exam reveals no lacerations or perforations in the vagina and otherwise is normal with no other masses palpated. Assessment pelvic pain possible ruptured cyst Plan discharged home with pain medication and follow-up with me in approximately 1 week we'll plan repeat ultrasound in 3-4 weeks to verify resolution of what I suspect his hemorrhagic fluid. We did discuss possibility this could be an ovarian torsion or ovarian mass and does require more follow-up Past Medical History Past Medical History: No Reported History Additional Past Medical History / Comment(s): IBS History of Any Multi-Drug Resistant Organisms: None Reported Past Surgical History: Section, Tubal Ligation Additional Past Surgical History / Comment(s): x2 Past Anesthesia/Blood Transfusion Reactions: No Reported Reaction Past Psychological History: Anxiety Smoking Status: Current every day smoker Past Alcohol Use History: Occasional Additional Past Alcohol Use History / Comment(s): SMOKES 1/2 PPD SINCE AGE 13 Past Drug Use History: None Reported - Past Family History Mother Family Medical History: Hypertension Medications and Allergies Home Medications Medication Instructions Recorded Confirmed Type Dicyclomine [Bentyl] 10 mg PO PRN 06/19/17 History FLUoxetine HCL [PROzac] 20 mg PO HS 06/19/17 06/19/17 History Allergies Allergy/AdvReac Type Severity Reaction Status Date / Time hydrocodone [From Vicodin] AdvReac Nausea Verified 06/19/17 01:55 Exam Osteopathic Statement: *. No significant issues noted on an osteopathic structural exam other than those noted in the History and Physical/Consult. - Vital Signs Vital signs: Vital Signs Temp Pulse Pulse Resp BP BP Pulse Ox 06/19/17 04:52 98.1 F 72 18 118/71 95 06/19/17 04:41 97.9 F 96 18 116/65 98 06/19/17 03:29 99.3 F 78 18 112/66 98 06/19/17 01:51 97.5 F L 63 18 111/58 95 Intake and Output 06/18/17 06/19/17 06/19/17 22:59 06:59 14:59 Intake Total 0 Output Total 300 Balance -300 Intake: Oral 0 Output: Urine 300 Other: # Voids 1 Weight 63.775 kg Results Result Diagrams: 06/19/17 02:30 06/19/17 02:30 Abnormal Lab Results - Last 24 Hours (Table) 06/19/17 06/19/17 Range/Units 02:30 02:30 WBC 10.8 H (3.8-10.6) k/uL Neutrophils # 7.9 H (1.3-7.7) k/uL Glucose 120 H (74-99) mg/dL
--- NOTE | 2017-06-19 10:46 | P.DS ---
Providers Date of admission: 06/19/17 04:18 Expected date of discharge: 06/19/17 Attending physician: Cristóbal Angel Primary care physician: Leona Zarco Hospital Course: Overall Sana stable, her pain is improved over last night and she wants to go home today. We'll discharge her to home in stable and satisfactory condition with instructions reviewed including to return to the emergency room or call our office should the pain gets severe again. A prescription for 20 town #3 and Motrin has been provided no maps was run due to less than 3 days worth of the medication. She denies using or taking narcotics of any other form at this time. Assessment pelvic pain possible ovarian cyst that ruptured Plan discharged home follow up with me in 1 week. We'll plan repeat ultrasound in 3-4 weeks and all of questions are answered for her at this time. She is stable for discharge at this time Patient Condition at Discharge: Good Plan - Discharge Summary New Discharge Prescriptions: New Acetaminophen-Codeine 300-30mg [Tylenol #3] 1 tab PO Q4H PRN #20 tablet PRN Reason: Pain Ibuprofen [Motrin] 600 mg PO Q6HR PRN #30 tab PRN Reason: Pain No Action FLUoxetine HCL [PROzac] 20 mg PO HS Dicyclomine [Bentyl] 10 mg PO PRN PRN Reason: Pain Discharge Medication List Acetaminophen-Codeine 300-30mg [Tylenol #3] 1 tab PO Q4H PRN #20 tablet [Rx] Dicyclomine [Bentyl] 10 mg PO PRN 06/19/17 [History] FLUoxetine HCL [PROzac] 20 mg PO HS 06/19/17 [History] Ibuprofen [Motrin] 600 mg PO Q6HR PRN #30 tab 06/19/17 [Rx] Follow up Appointment(s)/Referral(s): Leona Zarco DO [Primary Care Provider] - 1-2 days Cristóbal Angel DO [Doctor of Osteopathic Medicine] - 1 Week Activity/Diet/Wound Care/Special Instructions: No heavy lifting, limit stairs, pelvic rest. If any high temperatures, heavy bleeding, or severe pain report back to the emergency room or notify my office
[2017-06-19] MEDS ORDERED: KETOROLAC 30 MG/ML 1 ML VIAL IVP SCH (12:00)
== END 2017-06-19 13:05 | disposition home or self-care (01) ==
LOC: EC 01:48 → 6PED 04:18 → INTOOBSV 04:18 → UNDODISIN 13:05
PROVIDERS: ADMIT Obstetrics & Gynecology; ATTEND Obstetrics & Gynecology
DX: R10.2 Pelvic and perineal pain (principal); R19.00 Intra-abdominal and pelvic swelling, mass and lump, unspecified site; R11.2 Nausea with vomiting, unspecified; D72.829 Elevated white blood cell count, unspecified; K58.9 Irritable bowel syndrome, unspecified; F17.200 Nicotine dependence, unspecified, uncomplicated; F41.9 Anxiety disorder, unspecified; Z88.5 Allergy status to narcotic agent; Z79.899 Other long term (current) drug therapy; Z82.49 Family history of ischemic heart disease and other diseases of the circulatory system
CPT/HCPCS: 96375 ×2; 96376; 96361; 96372; 96374; 99285; 36415; 80053; 82150; 83690; 85025; 81003; 81025; 76830; 74177; G0378; J0500; J2405; J1885; Q9967; J2270

== ENCOUNTER 2017-07-09 10:55 | Emergency (ER) | payer OTHER ==
[2017-07-09 11:30] VITALS: RESP 18
--- NOTE | 2017-07-09 12:18 | ED ---
General Adult HPI - General Chief complaint: Abdominal Pain Stated complaint: Right side pain Time Seen by Provider: 07/09/17 11:33 Source: patient, RN notes reviewed, old records reviewed Mode of arrival: ambulatory Limitations: no limitations - History of Present Illness Initial comments: This is a 28-year-old female the ER for evaluation of abdominal pains with pubic abdominal pain. History of similar pain secondary to ruptured ovarian cyst. states pain started this morning significantly worsening. No vaginal bleeding or discharge. No diarrhea mild nausea no vomiting. No recent fevers. - Related Data Home Medications Medication Instructions Recorded Confirmed Cyclobenzaprine [Flexeril] 5 mg PO HS PRN 06/19/17 06/19/17 Dicyclomine [Bentyl] 10 mg PO TID PRN 06/19/17 06/19/17 FLUoxetine HCL [PROzac] 20 mg PO HS 06/19/17 06/19/17 Previous Rx's Medication Instructions Recorded Acetaminophen-Codeine 300-30mg 1 tab PO Q4H PRN #20 tablet 06/19/17 [Tylenol #3] Ibuprofen [Motrin] 600 mg PO Q6HR PRN #30 tab 06/19/17 Allergies Allergy/AdvReac Type Severity Reaction Status Date / Time hydrocodone [From Vicodin] AdvReac Nausea Verified 06/19/17 11:40 Review of Systems ROS Statement: Those systems with pertinent positive or pertinent negative responses have been documented in the HPI. ROS Other: All systems not noted in ROS Statement are negative. Past Medical History Past Medical History: No Reported History Additional Past Medical History / Comment(s): IBS History of Any Multi-Drug Resistant Organisms: None Reported Past Surgical History: Section, Tubal Ligation Additional Past Surgical History / Comment(s): x2 Past Anesthesia/Blood Transfusion Reactions: No Reported Reaction Past Psychological History: Anxiety Smoking Status: Current every day smoker Past Alcohol Use History: Occasional Past Drug Use History: None Reported - Past Family History Mother Family Medical History: Hypertension General Exam Limitations: no limitations General appearance: alert, in no apparent distress, anxious Head exam: Present: atraumatic, normocephalic, normal inspection Eye exam: Present: normal appearance, PERRL, EOMI. Absent: scleral icterus, conjunctival injection, periorbital swelling ENT exam: Present: normal exam, mucous membranes moist Neck exam: Present: normal inspection. Absent: tenderness, meningismus, lymphadenopathy Respiratory exam: Present: normal lung sounds bilaterally. Absent: respiratory distress, wheezes, rales, rhonchi, stridor Cardiovascular Exam: Present: regular rate, normal rhythm, normal heart sounds. Absent: systolic murmur, diastolic murmur, rubs, gallop, clicks GI/Abdominal exam: Present: soft, normal bowel sounds. Absent: distended, tenderness, guarding, rebound, rigid Extremities exam: Present: normal inspection, full ROM, normal capillary refill. Absent: tenderness, pedal edema, joint swelling, calf tenderness Back exam: Present: normal inspection Neurological exam: Present: alert, oriented X3, CN II-XII intact Psychiatric exam: Present: normal affect, normal mood Skin exam: Present: warm, dry, intact, normal color. Absent: rash Course Vital Signs 07/09/17 11:26 Temperature 97.8 F Pulse Rate 78 Respiratory 18 Rate Blood Pressure 127/71 O2 Sat by Pulse 98 Oximetry Medical Decision Making - Medical Decision Making 28 female the ER for severe pelvic pain, fibroid uterus. Pain control currently. Patient to follow up with OB as directed - Lab Data Lab Results 07/09/17 07/09/17 Range/Units 12:15 12:15 Urine Color Yellow Urine Appearance Clear (Clear) Urine pH 8.0 (5.0-8.0) Ur Specific [place] 1.018 (1.001-1.035) Urine Protein Trace H (Negative) Urine Glucose (UA) Negative (Negative) Urine Ketones Negative (Negative) Urine Blood Trace H (Negative) Urine Nitrite Negative (Negative) Urine Bilirubin Negative (Negative) Urine Urobilinogen 3.0 (<2.0) mg/dL Ur Leukocyte Esterase Negative (Negative) Urine RBC 1 (0-5) /hpf Urine WBC <1 (0-5) /hpf Ur Squamous Epith Cells 1 (0-4) /hpf Urine Mucus Rare H (None) /hpf Urine HCG, Qual Not Detected (Not Detectd) - Radiology Data Radiology results: report reviewed (Ultrasound shows fibroid uterus), image reviewed Disposition Clinical Impression: Abdominal pain, Pelvic pain, Pelvic mass Disposition: HOME SELF-CARE Condition: Good Instructions: Pelvic Pain in Women (ED) Is patient prescribed a controlled substance at d/c from ED?: No Referrals: Leona Zarco DO [Primary Care Provider] - 1-2 days
[2017-07-09 12:39] LABS: Appearance,Urine Clear (Clear); Bilirubin,Urine Negative (Negative); Blood,Urine Trace (Negative); Color,Urine Yellow; Glucose,Urine (UA) Negative (Negative); Ketones,Urine Negative (Negative); Leukocyte Esterase,Urine Negative (Negative); Mucus,Urine Rare /hpf; Nitrite,Urine Negative (Negative); Protein,Urine Trace (Negative); RBC,Urine 1 /hpf (0-5); Specific Gravity,Urine 1.018 (1.001-1.035); Squamous Epithelial Cell,Urine 1 /hpf (0-4); WBC,Urine <1 /hpf (0-5)
--- NOTE | 2017-07-09 14:53 | US ---
EXAMINATION TYPE: US pelvis comp w/tv w/doppler DATE OF EXAM: 07/09/2017 COMPARISON: NONE CLINICAL HISTORY: Pain RLQ x 1 week getting sharper the last few days. 2 c sections and tubal ligatio n TECHNIQUE: Transvaginal (TV) and Transabdominal (TA) . Transabdominal sonographic images of the pel vis were acquired. Transvaginal sonographic images were medically necessary to better assess the fol lowing anatomy: Uterus, Endometrium, and Ovaries Date of LMP: About a week ago EXAM MEASUREMENTS: Uterus: 6.4 x 3.6 x 4.4 cm Endometrial Stripe: 0.5 cm Right Ovary: 3.4 x 2.3 x 2.0 cm Left Ovary: 3.0 x 2.5 x 2.1 cm Limited due to bowel gas, bladder fill, and patient tolerance of TV. 1. Uterus: Retroverted Hypoechoic structure Mid Uterus measuring approximately 0.9 x 0.5 x 0.9 cm li sobeida fibroid. Also a cystic structure measured at Cervix (1.4 x 1.0 x 1.7 cm) questionable nabothian cyst versus other etiology. 2. Endometrium: wnl 3. Right Ovary: wnl, largest follicle measured 4. Left Ovary: wnl Spectral, color and waveform doppler imaging shows good arterial and venous flow within the ovaries ; there is no evidence for ovarian torsion. 5. Bilateral Adnexa: wnl 6. Posterior cul-de-sac: wnl IMPRESSION: 1. PROBABLE FIBROID UTERUS. 2. NABOTHIAN CYST.
[2017-07-09 15:16] VITALS: BP 121/68; PULSE 75; TEMP 98.4
== END 2017-07-09 15:16 | disposition home or self-care (01) ==
LOC: EC 10:55
DX: D25.9 Leiomyoma of uterus, unspecified (principal); R19.00 Intra-abdominal and pelvic swelling, mass and lump, unspecified site; R11.0 Nausea; F41.9 Anxiety disorder, unspecified; F17.200 Nicotine dependence, unspecified, uncomplicated; Z79.899 Other long term (current) drug therapy; Z88.5 Allergy status to narcotic agent; Z98.51 Tubal ligation status
CPT/HCPCS: 76830; 76856; 81001; 81025; 87086; 93975; 93976; 99284

== ENCOUNTER → 2019-05-18 | Outpatient (CLI) | payer BC ==
--- NOTE | 2019-05-23 10:42 | MM ---
Reason for exam: screening (asymptomatic). History: Family history of breast cancer in mother. Physical Findings: A clinical breast exam by your physician is recommended on an annual basis and results should be correlated with mammographic findings. MG Screening Mammo w CAD Bilateral CC and MLO view(s) were taken. No prior studies available for comparison. The breast tissue is heterogeneously dense. This may lower the sensitivity of mammography. There is no discrete abnormality. ASSESSMENT: Negative, BI-RAD 1 RECOMMENDATION: Routine screening mammogram of both breasts in 1 year.
== END | disposition home or self-care (01) ==
LOC: RADMAMWWP 15:04
PROVIDERS: ATTEND Obstetrics & Gynecology
DX: Z12.31 Encounter for screening mammogram for malignant neoplasm of breast (principal)
CPT/HCPCS: 77067

== ENCOUNTER 2019-10-12 09:02 | Day surgery (SDC) | payer BC ==
[2019-10-10 08:57] VITALS: BMI 27.3
[2019-10-12 09:21] VITALS: RESP 16; TEMP 97.6
[2019-10-12] MEDS ORDERED: LACTATED RINGERS 1,000 ML IV ONE (09:32)
[2019-10-12] MEDS ORDERED: LIDOCAINE 1% (10MG/ML) FOR IV START INTRADERMA ONE (09:32)
[2019-10-12] MEDS ORDERED: fentaNYL (PF) 50 MCG/ML 2 ML AMP ONE (10:02)
[2019-10-12] MEDS ORDERED: PROPOFOL 10 MG/ML 20 ML VIAL IV ONE (10:02)
[2019-10-12] MEDS ORDERED: MIDAZOLAM 2 MG/2 ML VIAL ONE (10:02)
--- NOTE | 2019-10-12 10:06 | P.GSHP ---
History of Present Illness H&P Date: 10/12/19 Chief Complaint: GI bleed, family history of colonic cancer This a 39-year-old female been safe for colonoscopy. Patient's had issues with rectal bleeding. She has a strong family history of colon cancer with her father dying of colon cancer in his 40s. Past Medical History Past Medical History: No Reported History Additional Past Medical History / Comment(s): IBS, had a bloody BM a few weeks back History of Any Multi-Drug Resistant Organisms: None Reported Past Surgical History: Section, Tubal Ligation Additional Past Surgical History / Comment(s): x2, colonoscopy Past Anesthesia/Blood Transfusion Reactions: No Reported Reaction Smoking Status: Current every day smoker - Past Family History Mother Family Medical History: Hypertension Father Family Medical History: Cancer Additional Family Medical History / Comment(s): COLON Medications and Allergies Home Medications Medication Instructions Recorded Confirmed Type Cyclobenzaprine [Flexeril] 5 mg PO HS PRN 06/19/17 10/12/19 History diphenhydrAMINE HCL [Benadryl] 50 mg PO HS PRN 10/10/19 10/12/19 History Allergies Allergy/AdvReac Type Severity Reaction Status Date / Time hydrocodone [From Vicodin] AdvReac Nausea Verified 10/12/19 09:21 Surgical - Exam Vital Signs Temp Pulse Resp BP Pulse Ox 97.6 F 78 16 145/67 98 10/12/19 09:14 10/12/19 09:14 10/12/19 09:14 10/12/19 09:14 10/12/19 09:14 - General well developed, well nourished, no distress - Eyes PERRL - ENT normal pinna - Neck no masses - Respiratory normal expansion - Cardiovascular Rhythm: regular - Abdomen Abdomen: soft, non tender Assessment and Plan Assessment: GI bleed Family history: Cancer We'll perform colonoscopy
--- NOTE | 2019-10-12 10:15 | P.OP ---
Date of Procedure: 10/12/19 Preoperative Diagnosis: GI bleed Family history colonic cancer Postoperative Diagnosis: Normal colonoscopy Procedure(s) Performed: Colonoscopy Anesthesia: MAC Surgeon: Shane Brooks Pathology: none sent Condition: stable Disposition: PACU Description of Procedure: PROCEDURE: The patient was placed on the endoscopy table in the lateral position. Digital rectal examination was performed which revealed no abnormalities. Flexible colonoscope was then placed in the patient's anus and passed throughout the entire colon. The ileocecal valve was visualized. The cecum, ascending, transverse, descending and sigmoid colon were normal. The rectum was normal as well. There were no masses, polyps or diverticula noted in the entire colon. SUMMARY OF FINDINGS: Normal colonoscopy.
[2019-10-12 10:35] VITALS: BP 96/59; PULSE 74
== END 2019-10-12 10:55 | disposition home or self-care (01) ==
LOC: ORWHC2ENDO 09:02
PROVIDERS: ATTEND Surgery
DX: K92.2 Gastrointestinal hemorrhage, unspecified (principal); Z80.0 Family history of malignant neoplasm of digestive organs; K58.9 Irritable bowel syndrome, unspecified; F41.9 Anxiety disorder, unspecified; Z98.51 Tubal ligation status; Z98.890 Other specified postprocedural states; F17.210 Nicotine dependence, cigarettes, uncomplicated; Z82.49 Family history of ischemic heart disease and other diseases of the circulatory system; Z79.899 Other long term (current) drug therapy; Z88.5 Allergy status to narcotic agent; Z97.2 Presence of dental prosthetic device (complete) (partial)
CPT/HCPCS: 81025; 45378; J2250; J3010; J2704

== ENCOUNTER → 2020-03-28 | Outpatient (CLI) | payer BC ==
--- NOTE | 2020-03-28 10:19 | USB ---
Reason for exam: clinical finding. History: Family history of breast cancer in mother at age 50. Indicated problem(s): palpable abnormality in the left breast. Physical Findings: Nurse Summary: 1cm movable nodule 1 o'clock (nurse corrine). US Breast Axilla LT Left breast axilla ultrasound demonstrates multiple lymph nodes in the left axilla, largest measuring 1.7 x 0.8 x 0.7cm. These results were verbally communicated with the patient and result sheet given to the patient on 03/28/20. ASSESSMENT: Probably benign, BI-RAD 3 RECOMMENDATION: Follow-up diagnostic mammogram of both breasts in 2 months. Back on schedule for May 2020. Manage patient on a clinical basis.
== END | disposition home or self-care (01) ==
LOC: RADUSWWP 09:33
PROVIDERS: ATTEND Internal Medicine Hematology & Oncology
DX: R30.0 Dysuria (principal); Z20.89 Contact with and (suspected) exposure to other communicable diseases

== ENCOUNTER → 2023-03-25 | Outpatient (CLI) | payer BC ==
--- NOTE | 2023-03-25 20:11 | US ---
EXAMINATION TYPE: US transvaginal DATE OF EXAM: 03/25/2023 COMPARISON: US 2018 CLINICAL INDICATION: Female, 42 years old with history of Z80.41 FAMILY HISTORY OF OVARIAN CANCER; TECHNIQUE: Transvaginal only per ordering physician Date of LMP: 1 month ago EXAM MEASUREMENTS: Uterus: 7.3 x 3.8 x 5.7 cm Endometrial Stripe: 0.4 cm Right Ovary: 3.2 x 1.9 x 1.6 cm Left Ovary: 3.9 x 2.0 x 2.6 cm 1. Uterus: retroverted, mildly heterogeneous with small 1.1cm hypoechoic area 2. Endometrium: appears wnl 3. Right Ovary: wnl 4. Left Ovary: wnl 5. Bilateral Adnexa: wnl 6. Posterior cul-de-sac: wnl IMPRESSION: No significant abnormality seen.
--- NOTE | 2023-03-29 08:51 | MM ---
Reason for Exam: Screening (asymptomatic). Last mammogram was performed 3 year(s) and 10 month(s) ago. Patient History: Menarche at age 10. First Full-Term at age 25. Mother had breast cancer, age 50. Risk Values: Diane 5 year model risk: 1.5%. NCI Lifetime model risk: 18.2%. Prior Study Comparison: 05/18/2019 Bilateral Screening Mammogram, [facility]. Tissue Density: The breast tissue is heterogeneously dense. This may lower the sensitivity of mammography. Findings: Analyzed By CAD. There is no suspicious group of microcalcifications or new suspicious mass in either breast. Overall Assessment: Negative, BI-RAD 1 Management: Screening Mammogram of both breasts in 1 year. . Patient should continue monthly self-breast exams. A clinical breast exam by your physician is recommended on an annual basis. This exam should not preclude additional follow-up of suspicious palpable abnormalities. Note on Diane scores and lifetime risk: 1. A Diane score greater than 3% is considered moderate risk. If this is the case, consider specialist referral to assess eligibility for a risk reducing agent. 2. If overall lifetime risk for the development of breast cancer is 20% or higher, the patient may qualify for future screening with alternating mammogram and breast MRI. Electronically signed and approved by: Cristina Watson M.D. Radiologist
== END | disposition home or self-care (01) ==
LOC: RADMAMWWP 15:58
PROVIDERS: ATTEND Internal Medicine Hematology & Oncology
DX: Z12.31 Encounter for screening mammogram for malignant neoplasm of breast (principal); Z80.41 Family history of malignant neoplasm of ovary
CPT/HCPCS: 76830; 77063; 77067

== ENCOUNTER 2023-07-08 08:09 | Day surgery (SDC) | payer BC ==
[~2023-07-08 08:09] MED LIST: LIDOCAINE 1% (10MG/ML) FOR IV START INTRADERMA PRN
[2023-07-08] MEDS: LACTATED RINGERS 1,000 ML IV SCH (08:34)
[2023-07-08 08:57] VITALS: RESP 16; TEMP 97.1
[2023-07-08] MEDS ORDERED: PROPOFOL 10 MG/ML 20 ML VIAL IV ONE (09:40)
--- NOTE | 2023-07-08 10:16 | P.PCN ---
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 Her father was diagnosed with colon cancer at age 40 and mother with breast cancer. Procedure performed: Esophagogastroduodenoscopy Colonoscopy Preoperative diagnosis: Personal history of Mosher syndrome Anesthesia: MAC Procedure: After informed consent was obtained from the patient was brought into the endoscopy unit and IV sedation was administered by anesthesia under continuous monitoring. Initially upper endoscopy was done. The Olympus GF 160 video endoscope was inserted inserted into the mouth and esophagus intubated without any difficulty and was gradually advanced into the stomach and duodenum and carefully examined. The bulb and second part of the duodenum appeared normal. The scope was then withdrawn into the stomach adequately insufflated with air and upon careful examination the antrum and body, cardia and fundus appeared normal. The scope was then withdrawn into the esophagus. Mild hiatal hernia noted. The GE junction was located at 40 cm to the incisors. It appeared regular with no erythema erosions or ulcerations. Rest of the esophagus appeared normal. Patient tolerated the procedure well. At this time the patient continued to remain sedation. Initial digital rectal examination was normal. Olympus CF 160 video colonoscope was then inserted into the rectum and gradually advanced to the cecum without any difficulty. Careful examination was performed as the scope was gradually being withdrawn. The prep was excellent. The cecum, ascending colon, transverse colon, descending colon, sigmoid colon and rectum appeared normal. Retroflexion was performed in the rectum and no lesions were noted. Patient tolerated the procedure well. Impression: 1. Upper endoscopy revealed small hiatal hernia but no evidence of gastric or duodenal polyps 2. Colonoscopy was within normal limits with no evidence of colorectal neoplasia Recommendations: Findings of this examination were discussed with the patient as well as her family. She was advised to have repeat colonoscopy in 1 to 2 years and upper endoscopy every 5 years as part of screening for personal history of Mosher syndrome.
[2023-07-08 11:08] VITALS: BP 135/83; PULSE 62
== END 2023-07-08 11:00 | disposition home or self-care (01) ==
LOC: ORWHC2ENDO 08:09
PROVIDERS: ATTEND Internal Medicine Gastroenterology
DX: K44.9 Diaphragmatic hernia without obstruction or gangrene (principal); Z80.0 Family history of malignant neoplasm of digestive organs
CPT/HCPCS: 81025; 45378; 43239; J2704

== ENCOUNTER → 2023-09-17 | Outpatient (CLI) | payer BC ==
[2023-09-17 23:29] LABS: Basophils # (A) 0.04 X 10*3/uL (0.00-0.10); Basophils % (A) 0.5 %; Eosinophils # (A) 0.12 X 10*3/uL (0.04-0.35); Eosinophils % (A) 1.6 %; HGB 14.3 g/dL (12.0-15.0); Lymphocytes # (A) 2.08 X 10*3/uL (0.90-5.00); Lymphocytes % (A) 28.3 %; MCH 28.8 pg (27.0-32.0); MCHC 32.5 g/dL (32.0-37.0); MCV 88.7 FL (80.0-97.0); Mean Platelet Volume 11.4 FL (9.5-12.2); Monocytes # (A) 0.49 X 10*3/uL (0.20-1.00); Monocytes % (A) 6.7 %; NRBC Per 100 WBC 0 X 10*3/uL (0.00-0.01); Neutrophils # (A) 4.62 X 10*3/uL (1.80-7.70); Neutrophils % (A) 62.8 %; Platelet Count 256 X 10*3/uL (140-440); RBC 4.96 X 10*6/uL (4.10-5.20); RDW 13.2 % (11.5-14.5); WBC 7.36 X 10*3/uL (4.50-10.00)
[2023-09-18 07:51] LABS: ALT 25 U/L (8-44); AST 30 U/L (13-35); Albumin 4.5 g/dL (3.8-4.9); Albumin/Globulin Ratio 1.55 Ratio (1.60-3.17); Alkaline Phosphatase 66 U/L (41-126); BUN/Creat Ratio 13.17 Ratio (12.00-20.00); Blood Urea Nitrogen 7.9 mg/dL (9.0-27.0); Calcium 9.1 mg/dL (8.7-10.3); Carbon Dioxide 20.9 mmol/L (21.6-31.8); Chloride 104 mmol/L (96-109); Chol/HDL Ratio 4.62 Ratio; Globulin 2.9 g/dL (1.6-3.3); Glucose 118 mg/dL (70-110); LDL Cholesterol,Calculated 134.4 mg/dL (0.0-131.0); Potassium 4.6 mmol/L (3.5-5.5); Sodium 137 mmol/L (135-145); Total Bilirubin 0.5 mg/dL (0.3-1.2); Total Protein 7.4 g/dL (6.2-8.2)
== END | disposition home or self-care (01) ==
LOC: LABPAT 10:46
PROVIDERS: ATTEND Family Medicine
DX: Z01.812 Encounter for preprocedural laboratory examination (principal); Z15.09 Genetic susceptibility to other malignant neoplasm; Z15.01 Genetic susceptibility to malignant neoplasm of breast; N92.0 Excessive and frequent menstruation with regular cycle; I10 Essential (primary) hypertension; Z79.899 Other long term (current) drug therapy
CPT/HCPCS: 80053; 80061; 83036; 84443; 85025; 86850; 86900; 86901; 87086

== ENCOUNTER 2023-09-26 05:49 | Day surgery (SDC) | payer BC ==
[2023-09-21 09:03] VITALS: BMI 31.1
[2023-09-26] MEDS ORDERED: LIDOCAINE 1% (10MG/ML) FOR IV START INTRADERMA PRN (05:58)
[2023-09-26] MEDS: IV FLUID CONTINUATION 1,000 ML IV ONE (06:38)
[2023-09-26] MEDS: DEXAMETHASONE SOD PHOSPHATE 4 MG/ML 1 ML VIAL IV ONE (06:45)
[2023-09-26] MEDS: ONDANSETRON 4 MG/2 ML VIAL IVP ONE (06:45)
[2023-09-26] MEDS: LACTATED RINGERS 1,000 ML IV SCH (06:46)
[2023-09-26] MEDS: FAMOTIDINE 20 MG/2 ML VIAL IV STA (06:50)
[2023-09-26] MEDS: SCOPOLAMINE 1 MG/72 HR PATCH TRANSDERM ONE (06:50)
[2023-09-26] MEDS: diphenhydrAMINE 50 MG/ML 1 ML VIAL IVP STA (06:57)
[2023-09-26] MEDS: MIDAZOLAM 2 MG/2 ML VIAL IVP ONE (07:13)
[2023-09-26] MEDS: fentaNYL (PF) 50 MCG/ML 2 ML AMP IVP ONE (07:15)
[2023-09-26] MEDS ORDERED: GLYCOPYRROLATE 0.2 MG/ML 2 ML VIAL ONE (07:25)
[2023-09-26] MEDS ORDERED: NEOSTIGMINE 1 MG/ML 10 ML VIAL ONE (07:25)
[2023-09-26] MEDS ORDERED: ROCURONIUM 10 MG/ML (5 ML VIAL) IV ONE (07:25)
[2023-09-26] MEDS ORDERED: LIDOCAINE 1% INJ 10MG/ML (20 ML MDV) ONE (07:25)
[2023-09-26] MEDS ORDERED: fentaNYL (PF) 50 MCG/ML 2 ML AMP ONE (07:25)
[2023-09-26] MEDS ORDERED: PROPOFOL 10 MG/ML 20 ML VIAL IV ONE (07:25)
[2023-09-26] MEDS ORDERED: KETOROLAC 15 MG/ML 1 ML VIAL ONE (07:25)
[2023-09-26] MEDS ORDERED: ESMOLOL 100 MG/10 ML VIAL ONE (07:25)
[2023-09-26] MEDS ORDERED: hydrALAZINE HCL 20 MG/ML 1 ML VIAL ONE (07:25)
[2023-09-26] MEDS ORDERED: NALOXONE 0.4 MG/ML 1 ML VIAL IV PRN (07:27)
--- NOTE | 2023-09-26 07:27 | P.ANPRN ---
Procedure Note - Anesthesia - Epidural/Spinal Spinal Time Out Performed: Yes Date of Procedure: 09/26/23 Procedure Start Time: 07:12 Procedure Stop Time: 07:17 Location of Patient: PreOp Indication: Acute Post-Operative Pain, Analgesia, Requested by Surgeon Sedation Type: Sedate with meaningful contact maintained Preparation: Sterile Prep Position: Sitting Catheter: None Needle Guage: 25 Narrative: Duramorph 0.3mg intrathecally Blood Aspirated: No Pain Paresthesia on Injection Noted: No Events: Uneventful and Well Tolerated
[2023-09-26] MEDS: BUPIVACAINE (PF) 0.25% 30 ML VIAL SQ ONE (07:30)
--- NOTE | 2023-09-26 07:36 | P.HPOB ---
History of Present Illness H&P Date: 09/26/23 Chief Complaint: BRCA1 positive, BRIP positive 43-year-old that presents for definitive treatment secondary to known BRCA positive, ANTONIA P+ gene mutation. Patient does see Dr. Carrillo for hematology oncology. Patient is desirous of definitive treatment with robotic assisted vaginal hysterectomy, bilateral salpingectomy, diagnostic cystoscopy secondary to genetic predisposition to cancer. 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 Review of Systems Constitutional: Denies chills, Denies fatigue, Denies fever Ears, nose, mouth and throat: Denies headache Cardiovascular: Denies leg edema Respiratory: Denies dyspnea Gastrointestinal: Denies nausea, Denies vomiting Genitourinary: Denies Past Medical History Past Medical History: Hypertension Additional Past Medical History / Comment(s): IBS. Aortic aneurysm. History of Any Multi-Drug Resistant Organisms: None Reported Past Surgical History: Section, Tubal Ligation Additional Past Surgical History / Comment(s): Section X2, colonoscopy, EGD. Past Anesthesia/Blood Transfusion Reactions: Family History of Problems w/ Anes thesia Additional Past Anesthesia/Blood Transfusion Reaction / Comment(s): States Mother's face, tongue and neck swelled up after shoulder surgery in [place], was told it was a reaction between her Lisinopril and Anesthesia. Smoking Status: Current every day smoker - Past Family History Mother Family Medical History: Cancer, Hypertension Additional Family Medical History / Comment(s): Breast cancer and cervical or uterine cancer. Father Family Medical History: Cancer Additional Family Medical History / Comment(s): COLON Cancer. Medications and Allergies Home Medications Medication Instructions Recorded Confirmed Type Cyclobenzaprine [Flexeril] 5 mg PO HS PRN 06/19/17 09/26/23 History Dicyclomine [Bentyl] 10 mg PO TID PRN 07/06/23 09/26/23 History Melatonin [Melatonin ER] 10 mg PO HS 07/06/23 09/26/23 History Sertraline [Zoloft] 50 mg PO HS 07/06/23 09/26/23 History lisinopriL [Zestril] 10 mg PO HS 09/21/23 09/26/23 History Allergies Allergy/AdvReac Type Severity Reaction Status Date / Time hydrocodone [From Vicodin] AdvReac Nausea Verified 09/21/23 08:55 morphine AdvReac spinning, Verified 09/21/23 08:55 vomiting Exam Osteopathic Statement: *. No significant issues noted on an osteopathic structural exam other than those noted in the History and Physical/Consult. Vital Signs Temp Pulse Resp BP Pulse Ox 09/26/23 07:26 72 15 117/57 97 09/26/23 06:28 98.0 F 64 16 113/59 97 Intake and Output 09/25/23 09/26/23 09/26/23 22:59 06:59 14:59 Intake Total 200 Balance 200 Intake: IV 200 Other: Weight 82.8 kg Targeted physical exam is performed this date General is well-nourished well- developed female in no acute distress, breathing is nonlabored, heart has a regular rate and rhythm, abdomen is soft and nontender, prior section scar is appreciated. On genitourinary exam external genitalia is noted to be normal for age the vaginal mucosa is noted to be pink and well-rugated the cervix is without lesion. No adnexal masses are appreciated. Assessment and Plan (1) BRCA gene mutation positive Current Visit: Yes Status: Acute Code(s): Z15.01 - GENETIC SUSCEPTIBILITY TO MALIGNANT NEOPLASM OF BREAST; Z15.09 - GENETIC SUSCEPTIBILITY TO OTHER MALIGNANT NEOPLASM SNOMED Code(s): 726550359 (2) BRIP1 gene mutation positive Current Visit: Yes Status: Acute Code(s): Z15.89 - GENETIC SUSCEPTIBILITY TO OTHER DISEASE SNOMED Code(s): 402161113 (3) History of section Current Visit: Yes Status: Acute Code(s): Z98.891 - HISTORY OF UTERINE SCAR FROM PREVIOUS SURGERY SNOMED Code(s): 341593985 Plan: 43-year-old female that presents for robotic assisted vaginal hysterectomy, bilateral salpingectomy, diagnostic cystoscopy. Patient has known genetic predisposition to cancer and wishes definitive treatment with hysterectomy. Risks are reviewed including but not limited to infection, bleeding, damage to bladder given her 2 prior C-sections this was extensively discussed, Bowel or ureteric injury. Patient states understanding and wishes to proceed.
[2023-09-26] MEDS: LACTATED RINGERS 1,000 ML IV ONE (08:51)
[2023-09-26] MEDS ORDERED: SIMETHICONE 80 MG CHEWABLE PO PRN (09:12)
[2023-09-26] MEDS ORDERED: Acetaminophen-Codeine 300-30mg TAB PO PRN ×2 (09:12)
--- NOTE | 2023-09-26 09:42 | P.OP ---
Date of Procedure: 09/26/23 Preoperative Diagnosis: BRCA positive, BRIP gene mutation Postoperative Diagnosis: same plus dense bladder adhesions. Anterior omental adhesions Procedure(s) Performed: Robotic assisted vaginal hysterectomy, bilateral salpingo-oophorectomy, diagnostic cystoscopy lysis of adhesions Anesthesia: BRADLEY Surgeon: Marni Rust Wheel Filler #1: Quynh Uriostegui Estimated Blood Loss (ml): 25 IV fluids (ml): 900 Urine output (ml): 125 Pathology: other (Uterus cervix bilateral fallopian tubes bilateral ovaries) Condition: stable Disposition: PACU Indications for Procedure: 43-year-old G2, P2 with known BRCA, BRIP gene mutation. 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 Operative Findings: Anterior omental adhesion taken down sharply hemostasis appreciated, dense anterior bladder adhesions normal ovaries bilaterally, endometriosis implants appreciated Description of Procedure: Patient was taken back to the operating suite where general anesthesia was obtained without difficulty. She was prepped and draped in the normal sterile fashion in the dorsolithotomy position. A Hsirley catheter was placed under child sterile technique. A weighted speculum was placed in the posterior vaginal vault and the anterior lip of the cervix is visualized and grasped with single- tooth tenaculum. The endocervical canal was then serially dilated and a NuvoMed uterine manipulator was advanced into the uterus as a means to manipulate the uterus throughout the procedure. The cervical cap was placed to go against the cervix the balloon was insufflated with air and all instruments were removed and the patient's vaginal vault. Attention was then turned to the patient's abdomen where approximately 2 fingerbreadths above the umbilicus a small skin incision is made. Through this incision the Veress needle was placed. Once the Veress needle was deemed to be in the appropriate position with a drop of CO2 pressure with the insufflation of CO2 gas CO2 insufflation was allowed to occur. Approximately 3 L of CO2 were used to obtain pneumoperitoneum. At this time the 8 mm trocar and sleeve was placed through the skin incision and toward the pneumoperitoneum under direct visualization with the laparoscope. The above- noted findings were visualized. The additional port sites were then placed 10 cm lateral and 3 cm inferior to midline port these are 8 mm ports and placed under direct visualization. In the left upper quadrant a 12 mm trocar and sleeve was placed under direct visualization with the laparoscope in place. The da Cristina was then docked in the usual fashion. In the right operative arm the monopolar scissors is placed, and the left operative arm the bipolar forceps is placed. Attention was then turned to the patient's left infundibulopelvic ligament which was grasped coagulated and transected. Hemostasis was appreciated. This continued through the broad toward the round which was coagulated distally and proximally and divided. The bladder flap from the left was then created using sharp and blunt dissection. The ascending branch of the uterine artery was then visualized coagulated and transected. The right infundibulopelvic ligament was visualized coagulated and transected hemostasis was appreciated. The round ligament was visualized coagulated and transected. Hemostasis was noted. The bladder flap from the right was then created using sharp and blunt dissection. The ascending branch of the uterine artery was visualized coagulated and transected. A Ray-Ligia was then placed into the a bdomen and the bladder was further dissected away from the operating field. At this time the only remaining attachment was a vaginal attachment. Colpotomy incision was made in a circumferential fashion, the uterus, bilateral fallopian tubes and ovaries were delivered through the vaginal opening. The pelvis was then copiously irrigated. The vaginal cuff was then closed with multiple [id number] sutures of 0 Vicryl. Approximately 5 sutures were used to obtain closure. Hemostasis was noted after closure. All instruments were then removed from the patient abdomen and the da Cristina was undocked in the usual fashion. Attention then turned to the patient's Shirley catheter which was noted to be draining clear yellow urine. It was removed without difficulty. A cystoscope was performed. The cystoscope was placed through the urethra toward the bladder bladder bubble was appreciated, bilateral spillage of yellow urine from the ureteral orifice. Cystoscope was removed without difficulty and the Shirley catheter was replaced. Attention center of the patient's abdomen where the skin incisions were closed with with 4-0 Vicryl in a subcuticular fashion. Steri-Strips and sterile dressings were applied. All counts were to be correct x 2. Patient tolerated procedure well and was taken to the recovery room awake in stable condition
[2023-09-26] MEDS: fentaNYL (PF) 50 MCG/ML 2 ML AMP IV PRN (10:31)
[2023-09-26] MEDS: ACETAMINOPHEN IV (For NPO) 1,000 MG in EMPTY BAG 1 BAG IVPB ONE (12:43)
[2023-09-26] MEDS: droPERidol 5 MG/2 ML VIAL IVP ONE (12:47)
[2023-09-26] MEDS: SERTRALINE 50 MG TAB PO SCH (20:56)
[2023-09-26] MEDS: IBUPROFEN 600 MG TAB PO PRN (20:57)
[2023-09-26] MEDS: SENNOSIDES-DOCUSATE SODIUM 1 EACH TAB PO SCH (21:58)
[2023-09-27 07:10] LABS: Basophils % (A) 0 %; Eosinophils % (A) 0 %; HCT 36.5 % (34.0-46.0); Lymphocytes # (A) 1.9 k/uL (1.0-4.8); Lymphocytes % (A) 22 %; MCH 29.8 pg (25.0-35.0); MCV 90.3 fL (80.0-100.0); Mean Platelet Volume 8.9; Monocytes # (A) 0.3 k/uL (0-1.0); Monocytes % (A) 3 %; Neutrophils # (A) 6.4 k/uL (1.3-7.7); Neutrophils % (A) 74 %; Platelet Count 214 k/uL (150-450); RBC 4.04 m/uL (3.80-5.40); RDW 13.6 % (11.5-15.5); WBC 8.7 k/uL (3.8-10.6)
--- NOTE | 2023-09-27 08:51 | P.DS ---
Providers Date of admission: 09/26/2023 Expected date of discharge: 09/27/23 Attending physician: Marni Rust Primary care physician: Leona Zarco - Discharge Diagnosis(es) (1) BRCA gene mutation positive Current Visit: Yes Status: Acute (2) BRIP1 gene mutation positive Current Visit: Yes Status: Acute (3) History of section Current Visit: Yes Status: Acute (4) Status post hysterectomy with oophorectomy Current Visit: Yes Status: Acute Hospital Course: 43-year-old female that presented yesterday for scheduled robotic assisted vag inal hysterectomy, bilateral salpingo-oophorectomy, diagnostic cystoscopy. 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 Patient requested risk reducing surgery. For full details in this patient please see the dictated history and physical. Patient was taken back to the operating room where surgery was performed without difficulty. For full details of the surgery please see the dictated operative report. On this postoperative day #1 she is ambulating and voiding without difficulty. She is tolerating a regular diet without nausea or vomiting. States her pain is well-controlled. Incisions are noted to be clean dry intact. Postop instructions are reviewed. [id number] ibuprofen 600 mg or 3 tablets every 6 hours as needed for pain. Would like to see her in 2 weeks for routine postoperative check. Patient Condition at Discharge: Good Plan - Discharge Summary Discharge Rx Participant: No New Discharge Prescriptions: No Action Cyclobenzaprine [Flexeril] 5 mg PO HS PRN PRN Reason: Pain Melatonin [Melatonin ER] 10 mg PO HS Dicyclomine [Bentyl] 10 mg PO TID PRN PRN Reason: cramping Sertraline [Zoloft] 50 mg PO HS lisinopriL [Zestril] 10 mg PO HS Discharge Medication List Cyclobenzaprine [Flexeril] 5 mg PO HS PRN 06/19/17 [History] Dicyclomine [Bentyl] 10 mg PO TID PRN 07/06/23 [History] Melatonin [Melatonin ER] 10 mg PO HS 07/06/23 [History] Sertraline [Zoloft] 50 mg PO HS 07/06/23 [History] lisinopriL [Zestril] 10 mg PO HS 09/21/23 [History] Follow up Appointment(s)/Referral(s): Marni Rust DO [Doctor of Osteopathic Medicine] - 2 Weeks Patient Instructions/Handouts: *Surgery [facility] - Scopalamine Patch Instructions Activity/Diet/Wound Care/Special Instructions: No intercourse, or tub baths. No heavy lifting greater than a gallon of milk. No driving for two weeks. Call with any fever, shakes or chills, with any pain not alleviated by over the counter meds, or with any quesions or concerns. Pqmu-bxy-kithcnk ibuprofen 600 mg or 3 tablets every 6 hours as needed for pain. Discharge Disposition: HOME SELF-CARE
[2023-09-27 09:14] VITALS: BP 95/60; PULSE 77; RESP 15; TEMP 98
[2023-09-27] MEDS ORDERED: ACETAMINOPHEN TAB 325 MG TAB PO PRN (09:14)
--- NOTE | 2023-09-27 12:41 | P.PN ---
Progress Note - Text Progress Note Date: 09/27/23 Postoperative day 1 status post robotic assisted vaginal hysterectomy under general endotracheal anesthesia, and intrathecal morphine given for postoperative analgesia, patient doing well, there is no anesthesia related complications, Patient had no headache, vital signs stable , Assessment and plan= postop day 1 status post robotic assisted vaginal hysterectomy, doing well there is no anesthesia related complication.
== END 2023-09-27 09:47 | disposition home or self-care (01) ==
LOC: OR 05:49 → 4FBP 09:17 → OR 09-27 09:47
PROVIDERS: ATTEND Obstetrics & Gynecology Obstetrics
DX: D25.1 Intramural leiomyoma of uterus (principal); N72 Inflammatory disease of cervix uteri; N83.02 Follicular cyst of left ovary; N84.0 Polyp of corpus uteri; K66.0 Peritoneal adhesions (postprocedural) (postinfection); K58.9 Irritable bowel syndrome, unspecified; I10 Essential (primary) hypertension; G89.18 Other acute postprocedural pain; F17.200 Nicotine dependence, unspecified, uncomplicated; Z80.3 Family history of malignant neoplasm of breast; Z88.5 Allergy status to narcotic agent; Z98.51 Tubal ligation status; Z98.891 History of uterine scar from previous surgery; Z80.0 Family history of malignant neoplasm of digestive organs; Z79.899 Other long term (current) drug therapy
CPT/HCPCS: 58552; S2900; 81025; 85025; 88309

== ENCOUNTER → 2023-12-23 | Outpatient (CLI) | payer BC ==
[2023-12-23 14:26] VITALS: BP 114/79; PULSE 95; RESP 18; TEMP 98.2
--- NOTE | 2023-12-23 14:44 | P.GSCN ---
History of Present Illness Consult date: 12/23/23 Reason for Consult: mass left breast History of present illness: Jaz is a 43 year old female seen in consultation for Dr. Zarco regarding a mass in her left breast. She had a bilateral mammogram on 03-25-23 which was BIRAD 1 this was personally interpreted. She had a left breast ultrasound on 09-24-23 showing a 0.3 by 0.3 cm complex cyst in the left breast. 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 She is at increased risk for ovarian cancer and had a hysterectomy and bilateral oophrectomy. Appointment with cell geneticist next month. Has a history of breast and ovarian cancer. Patient's father has a history of colon cancer. The patient has had a recent EGD and colonoscopy last year which were negative. She also has soft tissue nodules over her body the largest being on her right knee. Have never been diagnosed as anything. The lump is in her left breast near the aerola and is hard. It may have grown slightly. Diane score: 5-year risk: 1.5% Lifetime risk 18.2% Note Sylwia Cruz reviewed 10-03-23 note 04-11-23 DR. Carrillo reviewed caffeine: 2 cups/day nicotine: 1 PPD chocolate: occasional BCP: used from to , then a copper IUD hormones: none Family History: mother: breast and ovarian cancer father: colon Surgical History: MATIAS BSO two c-csections and a tubal Medical History: IBS depression aortic aneurysm small hiatal hernia HTN Social History: nicotine: as above alcohol: weekends drugs: Several times a week marijuana Review of Systems - Constitutional Reports sweats - EENT Eyes: denies blurred vision Ears: bilateral: decreased hearing, tinnitus Ears, nose, mouth and throat: Denies dysphagia - Breasts bilateral: as per HPI - Cardiovascular Reports chest pain - Respiratory Reports cough - Gastrointestinal Gastrointestinal Comment(s): IBS Reports constipation, Reports diarrhea - Musculoskeletal Musculoskeleta Comment(s): muscle spasms - Integumentary Denies rash, Denies unusual bruising - Neurological Denies headaches, Denies syncope - Psychiatric Reports anxiety, Reports depression - Endocrine Reports as per HPI - Hematologic/Lymphatic Denies easy bleeding, Denies easy bruising - Allergic/Immunologic Reports seasonal allergies Past Medical History Past Medical History: Osteoarthritis (OA) Additional Past Medical History / Comment(s): IBS, 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 difficulty breathing and swallowing when lying flat. dry heaves in a.m. family hx colon cancer. small aortic aneurysm being watched. History of Any Multi-Drug Resistant Organisms: None Reported Past Surgical History: Section, Tubal Ligation Additional Past Surgical History / Comment(s): c section x2, colonoscopy Past Anesthesia/Blood Transfusion Reactions: No Reported Reaction Additional Past Anesthesia/Blood Transfusion Reaction / Comm: States Mother's face, tongue and neck swelled up after shoulder surgery in [place], was told it was a reaction between her Lisinopril and Anesthesia. Past Alcohol Use History: Occasional Additional Past Alcohol Use History / Comment(s): SMOKES 1/2 PPD SINCE AGE 13. sometimes more than 7 in week. drinks vodka, Additional Drug Use History / Comment(s): smokes daily, pt aware not to use 24 hrs before procedure. - Past Family History Mother Family Medical History: Cancer, Hypertension Father Family Medical History: Cancer Medications and Allergies Home Medications Medication Instructions Recorded Confirmed Type Cyclobenzaprine [Flexeril] 5 mg PO HS PRN 06/19/17 09/26/23 History Dicyclomine [Bentyl] 10 mg PO TID PRN 07/06/23 09/26/23 History Melatonin [Melatonin ER] 10 mg PO HS 07/06/23 09/26/23 History Sertraline [Zoloft] 50 mg PO HS 07/06/23 09/26/23 History lisinopriL [Zestril] 10 mg PO HS 09/21/23 09/26/23 History Allergies Allergy/AdvReac Type Severity Reaction Status Date / Time hydrocodone [From Vicodin] AdvReac Nausea Verified 09/21/23 08:55 morphine AdvReac spinning, Verified 09/21/23 08:55 vomiting Surgical - Exam - General no distress - Eyes normal ocular movement - ENT no hearing loss - Neck trachea midline - Respiratory normal respiratory effort - Cardiovascular Rhythm: regular Heart Sounds: normal: S1, S2 - Abdomen Abdomen: soft, non tender, no guarding, no rigid, no rebound - Integumentary normal turgor - Neurologic no disoriented, no combative - Musculoskeletal normal gait - Psychiatric oriented to time, oriented to person, oriented to place, speech is normal, memory intact Breast Exam: BRA: 36D Inspection: Small approximately 5 millimeter periareolar left breast 1130 lesion, bilateral grade 2 ptosis Palpation: Right breast: Multi positional exam no dominant masses or nodules of concern Right axilla: No adenopathy of concern Left breast: Multi positional exam no dominant masses or nodules of concern, at the 1130 periareolar region on the left there is a small approximately 5 mm nodule which most likely corresponds to that which was seen on ultrasound as a complex cyst Left axilla: No adenopathy of concern Results mammogram 03-25-23 and ultrasound 09-24-23 reviewed Assessment and Plan Assessment: Impression: Small area of nodularity periareolar region left breast approximately 1130 approximately 5 mm in size Genetic mutation question the significance related to breast pathology Plan: Review radiographs with radiology Probable repeat left breast ultrasound with specific attention right at that site Appointment with genetic counselor CC: Dr. Francisco
== END ==
LOC: WWCWWP 13:56
PROVIDERS: ATTEND Surgery

== ENCOUNTER → 2024-09-19 | Outpatient (CLI) | payer BC ==
--- NOTE | 2024-09-21 17:45 | BMR ---
EXAM DATE: 09/20/2024 EXAM DESCRIPTION: MRI-Breast Bilat (W/WO Contrast) INDICATION: Palpable lump in the left breast COMPARISON: Comparison was made to prior relevant imaging available in PACS TECHNIQUE: Multiplanar multisequence breast MRI was performed prior to and after administration of 7 cc of gadobutrol intravenously. Post processing was performed utilizing a [employer] workstation. The technical portion of this study was performed at [facility] with radiological interpretation by [facility] radiology. FINDINGS: There is minimal, symmetric background parenchymal enhancement in breasts that are composed of heterogeneous fibroglandular tissue. RIGHT BREAST: Review of the dynamic contrast enhanced series shows no rapidly enhancing masses, suspicious enhancement patterns or other abnormalities. The T2 weighted series show no abnormality. LEFT BREAST: Review of the dynamic contrast enhanced series shows no rapidly enhancing masses, suspicious enhancement pattern or other abnormalities. The T2 weighted series show no abnormality. LYMPH NODES: No axillary or internal mammary lymphadenopathy. IMPRESSION: 1. Right breast: BI-RADS Category 1-negative. No MRI evidence of malignancy. Recommendation: MRI screening in 1 year 2. Left breast: BI-RADS Category 1-negative. No MR evidence of malignancy. 3. Given clinical concern of palpable lump in the left breast, please note that negative imaging should not dissuade from further workup including palpation guided biopsy if there is a clinically suspicious finding. Recommend continued clinical follow-up. OVERALL ASSESSMENT- BI-RADS 1 ANNUAL SCREENING BREAST MRI IN ADDITION TO MAMMOGRAPHY IS RECOMMENDED IN PATIENTS WITH LIFETIME RISK OF BREAST CANCER >20% MTDD
== END | disposition home or self-care (01) ==
LOC: RADMRIMAIN 18:02
PROVIDERS: ATTEND Internal Medicine Hematology & Oncology
DX: N63.20 Unspecified lump in the left breast, unspecified quadrant (principal); Z20.89 Contact with and (suspected) exposure to other communicable diseases; R30.0 Dysuria; U07.1 COVID-19; K58.9 Irritable bowel syndrome, unspecified
CPT/HCPCS: 77049; A9585